=== PATIENT | female | born 1955 | race Caucasian/White ===

== ENCOUNTER 2017-01-12 14:48 | Inpatient (IN) | payer OTHER ==
[~2017-01-12] VITALS: Ht 167.6 cm; Wt 61.3 kg
[~2017-01-12 14:48] MED LIST: ACTICIN 5% 60GM60 GM TOP; BENADRYL ALLERG25 MG PO; DELTASONE20 MG PO; ELIMITE60 GM TOP; HYDROCORTISONE2.51 TOP; HYDROXYZINE HCL25 M2 PO; HYDROXYZINE HCL25 MG PO; HYDROXYZINE HCL50 M1 PO; LICE CREAM RIN120 ML TOP; LINDANE60 M1 TOP; LINDANE60 ML TOP; PERMETHRIN60 GM TOP; PREDNISONE 20MG20 MG PO; PREDNISONE10 MG PO; PREDNISONE20 M1 PO; PREDNISONE50 MG PO; VISTARIL25 M1 PO; VISTARIL25 MG PO; [UNRECOGNIZED DRUG - OTHER] TOP
--- NOTE | 2017-01-12 14:53 | NUR ---
"I CALLED MY DOCTOR AND I WANT TO KILL MYSELF SO HE TOLD ME TO CALL 911 AND NOW I AM HERE", THIS MST PROCEEDED TO CHECK PATIENT INTO THE COMPUTER FOR EVAL
--- NOTE | 2017-01-12 14:54 | NUR ---
PT STATES AT [facility], "IF I DONT GET MY FUCKING PILLS IM GONNA SNAP, IM GONNA FUCKING KILL SOMEONE" CHARGE NURSE AND SECURITY NOTIFIED.
--- NOTE | 2017-01-12 14:55 | NUR ---
PT MOVED DIRECTLY TO ROOM 13 AND TRIAGED THERE. PT REPORTS SHE HAS +SI AND +HI TOWARDS OTHERS. PT STATES SHE FEELS LIKE SHE IS "GOING TO SNAP". PT REPORTS ETOH USE TODAY AND RECENTLY, EVEN THOUGH SHE IS ON HARVONI FOR HEPATITIS C. PT STATES THAT SHE IS HOMELESS AND HAS BEEN STAYING AT [facility], HAS HAD WEIGHT LOSS OVER THE LAST 2 MONTHS, GOING FROM A SIZE 10 TO A SIZE 5. PT REPORTS A HX OF TREATMENT WITH DR ROSE AT [facility], BUT THAT SHE HAS NOT HAD AN APPOINTMENT RECENTLY AND HER PRESCRIPTIONS HAVE RUN OUT. PT DENIES HX OF SEIZURES. PT STATES THAT SHE SCRATCHES HER SKIN BECAUSE IT IS VERY ITCHY AND HAS BEEN PRESCRIBED HYDROXYZINE FOR THIS.
[2017-01-12] MEDS ORDERED: HYDROXYZINE HCL50 M1 PO (15:17)
[2017-01-12] MEDS ORDERED: HARVONI 90-4001 EACH PO (15:18)
[2017-01-12] MEDS ORDERED: PRAMIPEXOLE0.125 M1 PO (15:19)
--- NOTE | 2017-01-12 15:25 | ED GENERAL ADULT ---
See Addendum History of Present Illness General Chief Complaint: Psychiatric Related Complaint Stated Complaint: "I AM GONNA SNAP, I GOTTA GET MY PILLS", +SI/HI Source: patient Exam Limitations: no limitations Vital Signs & Intake/Output Vital Signs & Intake/Output Vital Signs Date Time Temp Pulse Resp B/P B/P Pulse O2 O2 Flow FiO2 Mean Ox Delivery Rate / 1010 97.0 66 15 128/73 06/08 0810 98.5 75 15 130/72 06/08 0810 98.5 75 15 130/72 95 Room Air Room Air 06/08 0610 97.2 67 18 123/61 06/08 0609 97.2 67 18 123/61 97 Room Air 06/08 0407 97.7 80 18 145/74 06/08 0407 97.7 80 18 145/74 93 Room Air 06/08 0203 97.7 75 16 145/82 06/08 0203 97.7 75 16 145/82 96 Room Air 06/08 0013 98.3 74 18 126/73 95 Room Air 06/08 0002 98.3 74 18 126/74 06/07 2159 98 128/72 06/07 2158 98.0 98 16 128/72 95 Room Air 06/07 1621 Room Air 06/07 1522 98.4 82 18 140/76 95 Room Air Allergies Coded Allergies: NO KNOWN ALLERGIES (01/14/11) Reconcile Medications Hydroxyzine HCl 50 MG TABLET 1 TAB PO Q8P PRN ITCHING (Reported) Ledipasvir/Sofosbuvir (Harvoni 90-400 MG Tablet) 90 MG-400 MG TABLET 1 TAB PO DAILY HEP C (Reported) Pramipexole Di-HCl (Pramipexole Dihydrochloride) 0.125 MG TABLET 2 TAB PO QPM RESTLESS LEGS (Reported) Triage Note: PT TO ROOM 13 DUE TO ANGER AND VERBAL AGITATION. PT REPORTS SHE IS READY TO "SNAP", REPORTING SI AND HI TOWARDS PEOPLE SHE STAYS WITH. PT STATES THAT SHE IS HOMELESS AND HAS A HX OF SEEING DR ROSE AT THE [facility] FOR DEPRESSION AND ANXIETY, BUT THAT SHE HASN'T BEEN ABLE TO GET AN APPOINTMENT AND HAS RUN OUT OF HER MEDICATIONS. Triage Nurses Notes Reviewed? yes HPI: 61-year-old female with a history of anxiety, depression, hep C presenting with agitation, suicidal ideation, homicidal ideation. States that her PMD refuses to take any future appointments with her as she has missed many multiple prior appointments. She has been unable to get refills on her hydroxyzine and pramipexole. Reports increasing agitation and anger since being off her medications. Has thoughts that she wants to punch or shoot herself and those around her. She reports history of EtOH abuse with last drink being a 6 pack of beer today, no history of withdrawal seizures or delirium. Denies drug use. Denies physical pain or trauma. (SARA HDEZ,NESTOR) Past History Travel History Traveled to [place] past 21 day No Medical History Any Pertinent Medical History? see below for history Neurological: NONE EENT: NONE Cardiovascular: NONE Respiratory: NONE Gastrointestinal: NONE Hepatic: HEPATITIS C Renal: NONE Musculoskeletal: NONE Psychiatric: anxiety, depression Blood Disorders: NONE Cancer(s): NONE MDS COORDINATOR/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: NONE Surgical History Surgical History: non-contributory Psychosocial History Who do you live with Friend Services at Home None What is your primary language Croatian Tobacco Use: Current Daily Use Daily Tobacco Use Amount/Type: => 5 Cigarettes daily ETOH Use: occasional use Illicit Drug Use: marijuana Family History Hx Contributory? No (NESTOR RUIZ PA-C) Review of Systems Review of Systems Constitutional: Reports: no symptoms. Respiratory: Reports: no symptoms. Cardiovascular: Reports: no symptoms. GI: Reports: no symptoms. Genitourinary: Reports: no symptoms. Musculoskeletal: Reports: no symptoms. Skin: Reports: no symptoms. Neurological/Psychological: Reports: no symptoms. (NESTOR RUIZ PA-C) Physical Exam Physical Exam General Appearance: well developed/nourished, no apparent distress, anxious, comfortable Head: atraumatic Ears, Nose, Throat: normal ENT inspection Respiratory: normal breath sounds, lungs clear Cardiovascular: regular rate/rhythm Gastrointestinal: soft, non-tender Extremities: normal inspection, normal range of motion Neurologic/Psych: no motor/sensory deficits, awake, alert, oriented x 3, normal gait, rewinder II-XII nml as tested Skin: intact, normal color, warm/dry Core Measures ACS in differential dx? No CVA/TIA Diagnosis: No Severe Sepsis Present: No Septic Shock Present: No (NESTOR RUIZ PA-C) Progress Differential Diagnoses I considered the following diagnoses in my evaluation of the patient: [ Depression versus suicidal ideation/homicidal ideation versus EtOH intoxication] Plan of Care: Orders Procedure Date/time Status Regular Diet 01/12 D Active CIWA 01/12 2103 Active Add-on Test (ER Only) 01/12 170 Active Add-on Test (ER Only) 01/12 1625 Active ETHANOL 01/12 161 Complete Continuous Observation Monitor 01/12 155 Active URINALYSIS 01/12 155 Complete CBC WITHOUT DIFFERENTIAL 01/12 155 Complete BASIC METABOLIC PANEL 01/12 155 Complete ED CRISIS PSYCH CONSULT 01/12 155 Active URINE DRUG SCREEN FOR ER ONLY 01/12 1530 Complete Current Medications Sig/Daija Start time Last Medication Dose Stop Time Status Admin Multivitamins 1 TAB DAILY 01/12 2051 UNVr 01/13 (Theragran Vitamins) 1022 Folic Acid 1 MG DAILY 01/12 2050 UNVr 01/13 (Folic Acid) 1022 Thiamine HCl 50 MG DAILY 01/12 2049 UNVr 01/13 (Vitamin B1) 1022 Laboratory Tests 01/12/17 1702: Serum Alcohol Cancelled 01/12/17 1625: Urine Color Cancelled, Urine Clarity Cancelled, Urine pH Cancelled, Ur Specific [place] Cancelled, Urine Protein Cancelled, Urine Ketones Cancelled, Urine Nitrite Cancelled, Urine Bilirubin Cancelled, Urine Urobilinogen Cancelled, Ur Leukocyte Esterase Cancelled, Ur Microscopic Cancelled, Urine Hemoglobin Cancelled, Urine Glucose Cancelled 01/12/17 1618: Anion Gap 15, Estimated GFR > 60, BUN/Creatinine Ratio 16.7, Glucose 105 H, Calcium 9.1, CBC w Diff NO MAN DIFF REQ, RBC 3.46 L, MCV 99.6 H, MCH 34.3 H, RDW 13.1, MPV 9.8, Gran % 48.5, Lymphocytes % 38.7, Monocytes % 10.0 H, Eosinophils % 1.8, Basophils % 1.0, Absolute Granulocytes 2.1, Absolute Lymphocytes 1.7, Absolute Monocytes 0.4, Absolute Eosinophils 0.1, Absolute Basophils 0, PUBS MCHC 34.5, Serum Alcohol 177.0 01/12/17 1534: Urine Opiates Screen < 100.00, Methadone Screen < 40, Barbiturate Screen < 60, Ur Phencyclidine Scrn < 6.00, Amphetamines Screen < 100, U Benzodiazepines Scrn < 85, Urine Cocaine Screen < 50, Urine Cannabis Screen < 5.00, Urine Color YEL, Urine Clarity CLEAR, Urine pH 6.0, Ur Specific [place] <= 1.005, Urine Protein NEG, Urine Ketones NEG, Urine Nitrite NEG, Urine Bilirubin NEG, Urine Urobilinogen 0.2, Ur Leukocyte Esterase NEG, Ur Microscopic EXAM NOT REQUIRED, Urine Hemoglobin NEG, Urine Glucose NEG Labs remarkable for hypokalemia to 3.3, ordered for 40 mEq of by mouth potassium. Labs also remarkable for thrombocytopenia at 89, which has been present on prior labs and relatively unchanged from her baseline. Patient pending crisis evaluation. 11:00 pm Patient evaluated by a retail management keyholder, no available beds currently in [facility] , therefore will be held overnight in the ED. Given patient's extensive history of alcohol abuse she was placed on CIWA protocol with nursing evaluation every 2 hours. There are no standing orders for benzos at this time as she has showed no signs of EtOH withdrawal and denies any history of the same. Orders for benzos will be placed if the patient should develop signs of EtOH withdrawal. (SARA HDEZ,NESTOR) Initial ED EKG: none (NESTOR RUIZ PA-C) Hand-Off Endorsed To: ROSHAN NEVILLE DO Endorsed Time: 0700 Pending: consult (ADRIÁN PATEL,LIGIA Payton) Departure Departure Disposition: STILL A PATIENT Condition: Stable Clinical Impression Primary Impression: Suicidal ideation Secondary Impressions: Alcohol abuse, Homicidal ideation Referrals: FIDEL ROSE APRN (PCP/Family) Departure Forms: Customer Survey General Discharge Information (NESTOR RUIZ PA-C) PA/BRIEF WRITER Co-Sign Statement Statement: ED Attending supervision documentation- [] I saw and evaluated the patient. I have also reviewed all the pertinent lab results and diagnostic results. I agree with the findings and the plan of care as documented in the PA's/BRIEF WRITER's documentation. [x] I have reviewed the ED Record and agree with the PA's/BRIEF WRITER's documentation. [] Additions or exceptions (if any) to the PAs/BRIEF WRITER's note and plan are summarized below: [] (ADRIÁN PATEL,LIGIA Payton) Departure Comments 01/13/17 Patient was signed out to me by Dr. Anaya at 7 AM. She is pending disposition by crisis. (ROSHAN NEVILLE DO) Critical Care Note Critical Care Note Critical Care Time: non-applicable (SARA HDEZ,NESTOR)
--- NOTE | 2017-01-12 15:40 | NUR ---
ZAHRAA RUIZ AT BEDSIDE FOR EVAL
--- NOTE | 2017-01-12 16:20 | NUR ---
LABS DRAWN AND SENT (SST,LAV) SITTER SENT URINE TRIO
[2017-01-12 16:31] LABS: ABSOLUTE BASOPHIL COUNT 0 /CUMM (0.0-0.2); ABSOLUTE EOSINOPHIL COUNT 0.1 /CUMM (0.0-0.7); ABSOLUTE GRANULOCYTE CT 2.1 /CUMM (1.4-6.5); ABSOLUTE LYMPH COUNT 1.7 /CUMM (1.2-3.4); ABSOLUTE MONOCYTE COUNT 0.4 /CUMM (0.10-0.60); EOSINOPHIL % 1.8 % (0-5); GRANULOCYTE % 48.5 % (42.2-75.2); HEMATOCRIT 34.5 % (37-47); MEAN CORPUSCULAR HGB 34.3 PG (27.0-31.0); MEAN CORPUSCULAR HGB CONC 34.5 G/DL (33.0-37.0); MEAN CORPUSCULAR VOLUME 99.6 FL (81.0-99.0); MEAN PLATELET VOLUME 9.8 FL (7.4-10.4); RBC DISTRIBUTION WIDTH 13.1 % (11.5-14.5); RED BLOOD CELL CT 3.46 /CUMM (4.20-5.40); WHITE BLOOD CELL COUNT 4.4 /CUMM (4.8-10.8)
[2017-01-12 16:46] LABS: PLATELET COUNT 89 /CUMM (130-400)
--- NOTE | 2017-01-12 17:41 | NUR ---
PT'S MEDICATIONS BROUGHT TO LAB - INCLUDING HARVONI WHICH PT TAKES DAILY IN THE MORNING. PER EDUARDO FROM PHARMACY, THEY WILL USE PT'S OWN MEDICATION.
--- NOTE | 2017-01-12 18:55 | NUR ---
PT ASLEEP AT THIS TIME. PT ATE DINNER TRAY AND HAS BEEN CALM AND COOPERATIVE. SITTER AT DOOR. CRISIS TO EVAL.
--- NOTE | 2017-01-12 19:31 | NUR ---
PT AWOKEN TO BE MEDICATED WITH POTASSIUM 40MEQ PO AND TO BE BREATHALYZED. PT CALM AND COOPERATIVE. SITTER AT DOOR. CRISIS MADE AWARE OF BREATHALYZER RESULTS.
--- NOTE | 2017-01-12 19:40 | NUR ---
CRISIS AT BEDSIDE FOR EVAL
--- NOTE | 2017-01-12 20:34 | NUR ---
PT ASLEEP ON BED IN ROOM 13. PT'S RESPIRATIONS EQUAL AND UNLABORED. SITTER AT DOOR.
--- NOTE | 2017-01-12 21:43 | ED PSYCH CRISIS CONSULTATION ---
See Addendum Crisis Consult Basic Assessment Date of Consult: 01/12/17 Responsible Person/Accompanied By: Self Insurance Authorization: Insurance #1: Insurance name: REINALDO STEPHENS Phone number: Policy number: [id number] Group number: Authorization number: ED Provider: Patient's ED Provider: NESTOR RUIZ PA-C Primary Care Physician: Patient's PCP: FIDEL ROSE APRN PCP's Current Psychiatrist: Pillo Car MD Chief Complaint: Psychiatric Related Complaint Patient's Quote: "Just shoot me put me out of my misery" Present Illness: Pt is a 61 year old female BIBA. Pt called 911 after she was told by a worker at [facility] to call 911. The worker told the pt to call 911 because of this statement by the pt "It wouldn't mean anything to you if I commit suicide". Pt reports she is feeling hopeless and depressed because she has "no income, no place to live", Pt reports she drinks Vodka & Beer daily and she has been drinking daily since June 11, 2016 when she was released from snf. Pt served 90 days in snf for violating her probation orders for failure to complete substance abuse treatment /classes at [facility]. Current symptoms, pt reports feeling very confused, I'm getting days mixed up ( "that is why I keep missing my appointments"). "I don't have an appetite and can 't sleep". Pt was alert, hyperverbal and oriented x2. Pt reports feeling very anxious and extremely angry. "I'm pissed off, I don't like myself". Pt's speech was rapid as she verbalize how hopeless her life is at this time. Pt endorsed suicidal thoughts with a plan to cut her wrist and overdose on pills. Pt has a history of cutting her wrist in the past in an attempt to commit suicide 3 years ago. "I was in a bad marriage then" No evidence of psychosis present at this time. Pt became very frustrated and stress today, because she was on the phone with [facility] and the provider shared with the pt that they couldn't continue to provide her with services because she has missed too many appointments. Pt ran out of her medications and she was attempting to get new prescriptions. Today she was told by [facility] in [place] to go to the [facility] in [place]. Pt became angry because she has no money and couldn't figure out how she would get to [place]. "I have no income" "I only get food stamps". "I don't want to live like this anymore". Pt said she has been staying with friends here and there. She was staying with Buddy Casey, but all they do is drink, "He is a worst drunk than me". Pt does not have any family support. Pt has two adult children (women) she doesn't get along with them . One child lives in [place]. Pt has three adult siblings ( sisters) and they all drink. Alaina the oldest is an alcoholic, Opal drinks too and Edita at age 37 of complications from alcohol according to the pt her sister "of an overdose of Vodka". Pt reports her mother when the pt was 5 weeks old, but she was told that her mother too was an alcoholic. Pt reports a history of mental illness. She was diagnosed with Major Deprssion, Anxiety and Bipolar Disorder. Pt said "I've been taking Paxil (10 mgs) for years". Also, she has been in multiple substance abuse treatment, the last one was at [facility] in June,. Pt did not verbalize a desire to stop drinking at this time. Patient's Address: [address] [place] [address] Other Phone Number: Who Do You Live With? Friend Family/Informants Interviewed: practice clinician left a message for Buddy Casey Allergies - Coded Allergies: NO KNOWN ALLERGIES (01/14/11) Current Medications - Scheduled Medications Ledipasvir/Sofosbuvir (Harvoni 90-400 MG Tablet) 90 MG-400 MG TABLET 1 TAB PO DAILY HEP C (Reported) Entered as Reported by ADRIÁN CAIN on 01/12/17 1514 Pramipexole Di-HCl (Pramipexole Dihydrochloride) 0.125 MG TABLET 2 TAB PO QPM RESTLESS LEGS #60 (Reported) Entered as Reported by ADRIÁN CAIN on 01/12/17 1519 Scheduled PRN Medications Hydroxyzine HCl 50 MG TABLET 1 TAB PO Q8P PRN ITCHING (Reported) Entered as Reported by ADRIÁN CAIN on 01/12/17 1517 Laboratory Results: Laboratory Tests 01/12/17 1702: Serum Alcohol Cancelled 01/12/17 1625: Urine Color Cancelled, Urine Clarity Cancelled, Urine pH Cancelled, Ur Specific [place] Cancelled, Urine Protein Cancelled, Urine Ketones Cancelled, Urine Nitrite Cancelled, Urine Bilirubin Cancelled, Urine Urobilinogen Cancelled, Ur Leukocyte Esterase Cancelled, Ur Microscopic Cancelled, Urine Hemoglobin Cancelled, Urine Glucose Cancelled 01/12/17 1618: Anion Gap 15, Estimated GFR > 60, BUN/Creatinine Ratio 16.7, Glucose 105 H, Calcium 9.1, CBC w Diff NO MAN DIFF REQ, RBC 3.46 L, MCV 99.6 H, MCH 34.3 H, RDW 13.1, MPV 9.8, Gran % 48.5, Lymphocytes % 38.7, Monocytes % 10.0 H, Eosinophils % 1.8, Basophils % 1.0, Absolute Granulocytes 2.1, Absolute Lymphocytes 1.7, Absolute Monocytes 0.4, Absolute Eosinophils 0.1, Absolute Basophils 0, PUBS MCHC 34.5, Serum Alcohol 177.0 01/12/17 1534: Urine Opiates Screen < 100.00, Methadone Screen < 40, Barbiturate Screen < 60, Ur Phencyclidine Scrn < 6.00, Amphetamines Screen < 100, U Benzodiazepines Scrn < 85, Urine Cocaine Screen < 50, Urine Cannabis Screen < 5.00, Urine Color YEL, Urine Clarity CLEAR, Urine pH 6.0, Ur Specific [place] <= 1.005, Urine Protein NEG, Urine Ketones NEG, Urine Nitrite NEG, Urine Bilirubin NEG, Urine Urobilinogen 0.2, Ur Leukocyte Esterase NEG, Ur Microscopic EXAM NOT REQUIRED, Urine Hemoglobin NEG, Urine Glucose NEG Past History Past Medical History Neurological: NONE EENT: NONE Cardiovascular: NONE Respiratory: NONE Gastrointestinal: NONE Hepatic: hepatitis C Renal: NONE Musculoskeletal: NONE Psychiatric: alcohol dependence, anxiety, depression Endocrine: NONE Blood Disorders: NONE Cancer(s): NONE BRINE 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/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: NONE Past Surgical History Surgical History: non-contributory Psychosocial History Strengths/Capabilities: Pt called 911 for help Pt has a desire to take her medications Physical Limitations (Interventions): None Psychiatric Treatment History Psych Treatment Psychiatric Treatment Yes Inpatient Treatment Yes Outpatient Treatment Yes Location of Treatment [facility] 2010, [facility] 2016 Reason for Treatment ETOH, Major Depression Dates of Treatment 2010 Response to Treatment Relapse ETOH Diagnosis by History: Major Depression Alcohol Use Disorder severe Substance Use/Abuse History Drug Use/Abuse Substances Used/Abused Yes Substance Used/Abused Alcohol First Use Age 40 Last Used 01/12/17 How much used/taken Vodka & Beer How often Daily For how long 6 months Route of use Oral Substance Abuse Treatment Substance Abuse Treatment Past Substance Abuse [place] Yes Inpatient Treatment Yes Outpatient Treatment Yes Location of Treatment [facility], [place] Reason for Treatment Alcohol Use Disorder Dates of Treatment 2015,2001 Response to Treatment Sobriety on and off. 90 days sober in 2015 due to incarceration April 2016. Current Mental Status Mental Status Orientation: Current situation Affect: Anxious, Angry, Depressed, Hopeless, Manic, Sad Speech: Hyper-verbal, Loud Neuro-vegetative: Appetite Decreased, Concentration Poor, Energy Decreased, Helpless, Loss of Interest, Sleep Disturbance Appearance Appearance- Dress/Hygiene: Disheveled, dry skin, poor hygiene. Pt showed she has scratches all very her legs and arms. Missing upper front teeth (pt lost her dentures). Behaviors Thought Process: Disorganized Thought Content: Hopeless Memory: Impaired Insight: Poor SI/HI Risk Assessment Past Suicidal Ideation/Attempts Yes Current Suicidal Ideation/Att Yes Past Homicidal Ideation/Att: No Current Homicidal Ideation/Attempts No Degree of Intent: Plan, Self Destructive/No Danger To: Self Gravely Disabled: Lack of Insight, Poor Impulse Control, Poor Judgment Risk Factors: chronic/serious med cond., high anxiety/distress, history of Violence, history of suicide atmpts, SA/MH hospitalized, substance abuse, poor impulse control, limited support Lethality Ratin PTSD Checklist PTSD Done? patient declined ED Management Sitter: Yes Restraints: No DSM5/PS Stressors/Medical Prob Diagnosis' (DSM 5, Stressors, Medical): F32.9 Depressive Disorder Unspecified, F10.20 Alcohol Use Disorder Severe, F41.1 Anxiety Medical Condition Hepatitis CZ59.7 Insufficent Social Welfare support, Z59.1 Inadequate Housing, Problems Related to Access to Medical and other Health Care. Current GAF: 20 Departure Disposition Psych Medical Clearance Date: 01/12/17 Medically Cleared at: 0400 Time Started: 0750 Time Ended: 0835 Psychiatrist Consulted: Pillo Car MD Date Disposition Established: 01/12/17 Time Disposition Established: 844 Plan for Disposition - Modality: Hold Over Reevaluated in AM Facility: [facility] Follow-up Appt Date: 01/12/17 Follow-Up Appt Time: 0800 Contact: Crisis Telephone: [phone] Rationale for Disposition: Pt presented to the ED with Suicidal thoughts and a plan to overdose on medications and cut her wrist. Pt was intoxicated ETOH upon arrival to the ED. Pt has a history of suicide attempt (cut wrist) and reports she has been drinking daily for the past 6 months. Pt is a risk and and a danger to herself. Plan monitor in ED for withdrawal symptoms, complete CIWA reevaluate in morning. Referrals FIDEL ROSE APRN (PCP/Family)
[2017-01-12 21:59] VITALS: BP 128/72
--- NOTE | 2017-01-12 22:00 | NUR ---
PT AWOKEN FOR VITALS AND CIWA. PT CALM AND COOPERATIVE. PT DENIES ANY WITHDRAWAL SYMPTOMS AT THIS TIME. SITTER AT DOOR.
--- NOTE | 2017-01-12 22:06 | NUR ---
PT MEDICATED WITH MULTIVITAMIN, VITAMIN B1 100MG AND FOLIC ACID.
[2017-01-13] VITALS (12 sets, daily range): BP systolic 112–145; BP diastolic 60–87
--- NOTE | 2017-01-13 | NUR ---
SLEEPING AT THIS TIME AWAKENED FOR VS. OFFERS NO COMPLAINTS. NO TREMORS PRESENT SITTER AT DOOR.
--- NOTE | 2017-01-13 02:02 | NUR ---
SLEEPING QUIETLY. AWAKENED FOR VS. CIWA = 0
--- NOTE | 2017-01-13 06:00 | NUR ---
AWAKENED FOR VS CO RICH. NO TREMORS PRESENT. SITTER AT DOOR.
--- NOTE | 2017-01-13 08:28 | NUR ---
PT RESTING ON STRETCHER, REPORTS IMPROVEMENT AFTER TYLENOL FOR HEAD. CIWA 0. SITTER REMAINS AT BEDSIDE FOR PT SAFETY.
--- NOTE | 2017-01-13 09:49 | NUR ---
PT REPORTED TO CRISIS THAT SCRATCH KNOTT ON HER ARMS WERE FROM ITCHING DUE TO BED BUGS. PT REPORTS LAST CONTACT WITH THE BUGS WAS TWO DAYS AGO "AND THEN I TOOK A HOT SHOWER AND CHANGED MY CLOTHES AFTER I LEFT AND CAME HERE." PT INSPECTED, NO BUGS NOTED ON PT OR IN ROOM/ON BED OR SHEETS. PT'S CLOTHING PREVIOUSLY IN A PLASTIC BELONGINGS BAG, BUT DOUBLE BAGGED AT THIS TIME PER PROTOCOL. PT PLACED ON CONTACT PRECAUTIONS.
--- NOTE | 2017-01-13 10:22 | NUR ---
PT MEDICATED PER EMAR. TOLERATED WELL.
--- NOTE | 2017-01-13 11:16 | NUR ---
Dispo: Case reviewed with Dr. Juan and meets inpatient criteria. Crisis will conduct bed search and pt is aware of plan and in agreement.
--- NOTE | 2017-01-13 12:25 | NUR ---
PT MEDICATED IWTH ATIVAN PER EMAR. TOLERATED WELL. REQUESTING TO SPEAK TO NAVY MATERIAL INSPECTOR ABOUT PROCESS OF BED SEARCH. VANDANA FROM CRISIS AWARE.
--- NOTE | 2017-01-13 14:58 | NUR ---
PT SLEEPING, NORMAL RESP RATE NOTED. SITTER REMAINS AT BEDSIDE FOR SAFETY.
--- NOTE | 2017-01-13 16:57 | NUR ---
PT RESTING ON BED, NO ACUTE DISTRESS NOTED. NORMAL RR NOTED. SITTERS REMAIN AT BEDSIDE FOR SAFETY. STILL AWAITING BED SEARCH.
--- NOTE | 2017-01-13 18:48 | NUR ---
PT RESTING ON STRETCHER, NO ACUTE DISTRESS NOTED. MEDICATED WITH ATIVAN PER EMAR.
--- NOTE | 2017-01-13 21:01 | NUR ---
PT RESTING ON STRETCHER. NO DISTRESS NOTED. DENIES ANY PAIN OR OTHER SYMPTOMS. CIWA 0.
--- NOTE | 2017-01-13 22:22 | NUR ---
PT CALM AND COPERATIVE AWAKE AND ALERT FOR VITALS AT THIS TIME. OFFERS NO COMPLAINTS
[2017-01-14] VITALS (10 sets, daily range): BP systolic 107–146; BP diastolic 72–87
--- NOTE | 2017-01-14 01:57 | NUR ---
PT RESTING ON STRETCHER. NO APPARENT DISTRESS NOTED. SITTERS IN PLACE. WILL CONTINUE TO MONITOR.
--- NOTE | 2017-01-14 03:42 | NUR ---
PT RESTING COMFORTABLY ON BED. NO APPARENT DISTRESS NOTED. WILL CONTINUE TO MONITOR. SITTER IN PLACE.
--- NOTE | 2017-01-14 05:00 | NUR ---
PT RESTING ON BED. NO APPARENT DISTRESS NOTED. EVEN RISE AND FALL OF CHEST NOTED. WILL CONTINUE TO MONITOR.
--- NOTE | 2017-01-14 06:53 | NUR ---
PT SITTING UP ON BED READING MAGAZINE. PT DENIES ANY COMPLAINTS. SITTER REMAINS IN PLACE.
--- NOTE | 2017-01-14 07:14 | NUR ---
RED'D REPORT AND ASSUMED CARE OF PT
--- NOTE | 2017-01-14 07:21 | NUR ---
PT RESTING IN DARKENED ROOM; EYES CLOSED
--- NOTE | 2017-01-14 08:32 | NUR ---
PT RESTLESS, DEMANDING "I WANT ANSWERS. NO ONE IS GOING TO TELL ME WHAT'S HAPPENING". PT REASSURED THAT STOCK PATCH SAWYER WOULD MEET WITH HER LATER THIS AM TO DISCUSS OPTIONS, WHICH IS ACCEPTABLE TO PT. REQUESTED AM ATIVAN.
--- NOTE | 2017-01-14 11:15 | NUR ---
ASSUMED CARE OF THIS PT FROM GEOVANNI JOHNSTON. PT SITTING ON BED IN ROOM 13 READING MAGAZINES. PT ASKING WHAT THE PKAN IS FOR HER AND WHEN SHE WILL BE ADMITTED. THIS RN ADVISED HER THAT ONCE THE DISCHARGE HAPPENS AND THE ROOM IS CLEANED, SHE WILL TRANSFER DOWNSTAIRS. PER CRISIS, THIS WILL BE AFTER 5PM. SITTER AT DOOR.
--- NOTE | 2017-01-14 11:51 | NUR ---
PT MEDICATED WITH ATIVAN 0.5MG PO PER EMAR. PT EATING LUNCH. SITTER AT DOOR.
--- NOTE | 2017-01-14 12:36 | IP CRISIS DIAG ASSESS PSYCH ---
Diagnostic Assessment Basic Assessment Insurance Authorization: Insurance #1: Insurance name: REINALDO STEPHENS Phone number: Policy number: [id number] Group number: Authorization number: Primary Care Physician: Patient's PCP: FIDEL ROSE APRN PCP's Patient's Quote: "Just shoot me put me out of my misery" Present Illness: Per Crisis Evaluation by Emery Soni, W[employer]: Pt is a 61 year old female BIBA. Pt called 911 after she was told by a worker at [facility] [place] to call 911. The worker told the pt to call 911 because of this statement by the pt "It wouldn't mean anything to you if I commit suicide". Pt reports she is feeling hopeless and depressed because she has "no income, no place to live", Pt reports she drinks Vodka & Beer daily and she has been drinking daily since June 11, 2016 when she was released from alf. Pt served 90 days in alf for violating her probation orders for failure to complete substance abuse treatment /classes at [facility]. Current symptoms, pt reports feeling very confused, I'm getting days mixed up ( "that is why I keep missing my appointments"). "I don't have an appetite and can 't sleep". Pt was alert, hyperverbal and oriented x2. Pt reports feeling very anxious and extremely angry. "I'm pissed off, I don't like myself". Pt's speech was rapid as she verbalize how hopeless her life is at this time. Pt endorsed suicidal thoughts with a plan to cut her wrist and overdose on pills. Pt has a history of cutting her wrist in the past in an attempt to commit suicide 3 years ago. "I was in a bad marriage then" No evidence of psychosis present at this time. Pt became very frustrated and stress today, because she was on the phone with [facility] [place] and the provider shared with the pt that they couldn't continue to provide her with services because she has missed too many appointments. Pt ran out of her medications and she was attempting to get new prescriptions. Today she was told by [facility] [place] in [place] to go to the [facility] [place] in [place]. Pt became angry because she has no money and couldn't figure out how she would get to [place]. "I have no income" "I only get food stamps". "I don't want to live like this anymore". Pt said she has been staying with friends here and there. She was staying with Buddy Casey, but all they do is drink, "He is a worst drunk than me". Pt does not have any family support. Pt has two adult children (women) she doesn't get along with them . One child lives in [place]. Pt has three adult siblings ( sisters) and they all drink. Alaina the oldest is an alcoholic, Opal drinks too and Edita at age 37 of complications from alcohol according to the pt her sister "of an overdose of Vodka". Pt reports her mother when the pt was 5 weeks old, but she was told that her mother too was an alcoholic. Pt reports a history of mental illness. She was diagnosed with Major Deprssion, Anxiety and Bipolar Disorder. Pt said "I've been taking Paxil (10 mgs) for years". Also, she has been in multiple substance abuse treatment, the last one was at [facility] in June,. Pt did not verbalize a desire to stop drinking at this time. Crisis consulted Dr. Harmon on 01/14/17 after re-evaluation. Pt presented as angry and irritable. Pt wants to go home. Pt denies SI and HI however yesterday continued to endorse a plan to kill herself by overdose of medication by any medications she can find. Pt is risk to self. Pt requires inpatient hospitalization to ensure her safety and to stabalize and resume psychiatric medications. Patient's Address: [address] [place] [address] Other Phone Number: Who Do You Live With? Friend Feel Safe Where You Live? Yes Feel Safe in Your Relationship Yes Marital Status: Do You Have Children? No Primary Language? 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 left a message for Buddy Daleyremberto Allergies - Coded Allergies: NO KNOWN ALLERGIES (01/14/11) Current Medications - Scheduled Medications Ledipasvir/Sofosbuvir (Harvoni 90-400 MG Tablet) 90 MG-400 MG TABLET 1 TAB PO DAILY HEP C (Reported) Entered as Reported by ADRIÁN CAIN on 01/12/17 1518 Pramipexole Di-HCl (Pramipexole Dihydrochloride) 0.125 MG TABLET 2 TAB PO QPM RESTLESS LEGS #60 (Reported) Entered as Reported by ADRIÁN CAIN on 01/12/17 1519 Scheduled PRN Medications Hydroxyzine HCl 50 MG TABLET 1 TAB PO Q8P PRN ITCHING (Reported) Entered as Reported by ADRIÁN CANI on 01/12/17 1517 Consequences of Psych Med Use: pt reports she has been off her medications for 2 months since she has missed several appointments at the [facility] [place] due to bad weather. Toxicology Screen Completed? Yes Results: positive (ETOH) Symptoms of Use: Pt drinks daily since June 2016 Past History Past Surgical History Surgical History none Abuse/Trauma History Trauma History/Current Trauma: Denies Legal History Current Legal Status: none Have you ever been arrested? Yes Number of Arrests: [address] Dates: none Psychosocial History Strengths/Capabilities: Pt called 911 for help Pt has a desire to take her medications Physical Limitations (Interventions): None Psychiatric Treatment History Psych Treatment Psychiatric Treatment Yes Inpatient Treatment Yes Outpatient Treatment Yes Location of Treatment [facility] 2010, [facility] 2016 Reason for Treatment ETOH, Major Depression Dates of Treatment 2010 () 2016- [facility] Response to Treatment Relapse ETOH Diagnosis by History: Major Depression Alcohol Use Disorder severe Risk Factors: chronic/serious med cond., high anxiety/distress, history of Violence, history of suicide atmpts, SA/MH hospitalized, substance abuse, poor impulse control, limited support Substance Use/Abuse History Drug Use/Abuse minimum 12mo Hx Substances Used/Abused Yes Substance Used/Abused Alcohol First Use Age 40 Last Used 01/12/17 How much used/taken Vodka & Beer How often Daily For how long 6 months Route of use Oral Substance Abuse Treatment Substance Abuse Treatment Past Substance Abuse TX Yes Inpatient Treatment Yes Outpatient Treatment Yes Location of Treatment [facility], [place] Reason for Treatment Alcohol Use Disorder Dates of Treatment Response to Treatment Sobriety on and off. 90 days sober in 2016 due to incarceration April 2016. Sexual History Sexually Active No Education History Highest Level of Education: not sure Current Mental Status Mental Status Orientation: Person, Place, Situation Affect: Angry, Hopeless, Manic, Sad Speech: Hyper-verbal, Loud Neuro-vegetative: Appetite Decreased, Concentration Poor, Energy Decreased, Helpless, Loss of Interest, Sleep Disturbance Appearance Appearance- Dress/Hygiene: Disheveled, dry skin, poor hygiene. Pt showed she has scratches all very her legs and arms. Missing upper front teeth (pt lost her dentures). Behaviors Thought Process: Disorganized Thought Content: Hopeless Memory: Impaired Insight: Poor SI/HI Risk Assessment - Minimum 6mo History- Past Suicidal Ideation/Attempts Yes Current Suicidal Ideation/Att Yes Past Homicidal Ideation/Att: No Current Homicidal Ideation/Attempts No Degree of Intent: Plan, Self Destructive/No Danger To: Self Gravely Disabled: Lack of Insight, Poor Impulse Control, Poor Judgment Risk Factors: chronic/serious med cond., high anxiety/distress, history of Violence, history of suicide atmpts, SA/MH hospitalized, substance abuse, poor impulse control, limited support Lethality Ratin Needs/Init TX Plan/Goals: Resume medications to treat symptoms of depression Increase social support system Link to terminal system operator provider for medication management and therapy Learn alcohol refusal skills and coping skills AUDIT-C Questionnaire: AUDIT-C Questionnaire: Response Value ETOH use in the past year 4 or more per week 4 # drinks typical/day 10 or more 4 6 or > drinks per occasion Daily/Almost Daily 4 Total 12 DSM5/PS Stressors/Medical Prob Diagnosis' (DSM 5, Stressors, Medical): F32.9 Depressive Disorder Unspecified F10.20 Alcohol Use Disorder Severe F41.1 Anxiety MedicalCondition Hepatitis CZ59.7 Insufficent Social Welfare support Z59.1 Inadequate Housing ProblemsRelated to Access to Medical and other Health Care. Current GAF: 20
--- NOTE | 2017-01-14 12:43 | NUR ---
Pt will be admitted to [facility] earlier in the afternoon, after 1pm, before 5pm PER [facility]
--- NOTE | 2017-01-14 13:30 | NUR ---
PT ASLEEP AT THIS TIME IN ROOM 13. PT CALM BUT AGGRIVATED AT HAVING TO WAIT TO BE ADMITTED. PT UNDER GOOD BEVAVIORAL CONTROL. SITTER AT DOOR.
--- NOTE | 2017-01-14 14:56 | NUR ---
WAS ADVISED THAT I COULD CALL REPORT ON ROOM 13, BUT WHEN I SPOKE WITH DALLAS, HE SAID THAT THE D/C THAT HAS OCCURRED WAS A MALE PT AND THAT HE WOULD CALL BACK AFTER THE SECOND D/C.
--- NOTE | 2017-01-14 18:58 | NUR ---
Patient was brought down to [facility] from ED at 1549, A&O X 3, compliant with medication and group therapies. Patient came with diagnosis of Unspecified Depressive Disorder,Alcohol Abuse/dependence with Suicidal Ideation. Patient is a bit hyperverbal and endorses some anger towards her neigbors and friend but denies thought of self-harm. Patient contracted for safety her in the unit her bahavior is a bit hyperactive but with coherent and organized thought.
--- NOTE | 2017-01-14 22:54 | Admission Certification ---
Admission Certification Certification Statement - As attending physician, I certify that at the time of - admission, based on clinical presentation, severity of - symptoms, need for further diagnostic testing and - therapeutic interventions, and risk of adverse outcomes - without in-hospital treatment, in my clinical assessment, - this patient requires an acute hospital stay for a minimum - of two nights or longer. I have also considered psychsocial - factors such as support system, advanced age, financial - issues, cognitive issues, and failed out-patient treatments, - past re-admission history, safety of patient, and lack of - compliance as applicable. Specific rationale supporting this admission is: Depression, alcohol use disorder, suicidal ideation.
--- NOTE | 2017-01-14 22:54 | History & Physical ---
General Information and HPI MD Statement: I have seen and personally examined HECTOR LUCAS and documented this H&P. The patient is a 61 year old F who presented with a patient stated chief complaint of [agitated, SI]. Source of Information: patient Exam Limitations: no limitations History of Present Illness: 61 yo F with h/o Hep C currently on Harvoni, anxiety, depression, bipolar disorder, is admitted to Inpatient Psychiatry for depression, suicidal ideation and alcohol use disorder. Please refer to Psych H and P for full details. Patient reports being compliant with Hep C medication. Although she states she has not been taking her depression meds. She drinks 6 pack of beer daily. She reports chest discomfort radiating to the left arm in the past 2 weeks, she is pain free at present. She also c/o being dyspneic when she gets anxious. Allergies/Medications Allergies: Coded Allergies: NO KNOWN ALLERGIES (01/14/11) Home Med list Hydroxyzine HCl 50 MG TABLET 1 TAB PO Q8P PRN ITCHING (Reported) Ledipasvir/Sofosbuvir (Harvoni 90-400 MG Tablet) 90 MG-400 MG TABLET 1 TAB PO DAILY HEP C (Reported) Pramipexole Di-HCl (Pramipexole Dihydrochloride) 0.125 MG TABLET 2 TAB PO QPM RESTLESS LEGS (Reported) Compliance With Home Meds: POOR Past History Travel History Traveled to [place] past 21 day No Medical History Neurological: NONE EENT: NONE Cardiovascular: NONE Respiratory: NONE Gastrointestinal: NONE Hepatic: hepatitis C Renal: NONE Musculoskeletal: NONE Psychiatric: alcohol dependence, anxiety, bipolar disease, depression Endocrine: NONE Blood Disorders: NONE Cancer(s): NONE 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 Psychosocial History Where do you live? Home Who Do You Live With? self Services at Home: None Primary Language: Nigerian Smoking Status: Current Everyday Smoker ETOH Use: occasional use Illicit Drug Use: marijuana Functional Ability ADLs Independent: dressing, eating, toileting, bathing. Ambulation: independent IADLs Independent: food prep, telephone, transportation, medication admin. Review of Systems Review of Systems Constitutional: Denies: chills, fever, weakness. EENTM: Reports: no symptoms. Cardiovascular: Reports: chest pain. Denies: orthopena, palpitations, syncope. Respiratory: Reports: short of breath. Denies: cough, sputum production, wheezing. GI: Denies: abdominal pain, diarrhea, nausea, vomiting. Genitourinary: Reports: no symptoms. Musculoskeletal: Reports: no symptoms. Skin: Reports: no symptoms. All Other Systems: Reviewed and Negative Exam & Diagnostic Data Last 24 Hrs of Vital Signs/I&O Vital Signs Date Time Temp Pulse Resp B/P B/P Pulse O2 O2 Flow FiO2 Mean Ox Delivery Rate 01/15 2311 78 18 121/75 01/15 2037 96.0 81 117/63 01/15 1535 98 121/72 01/15 1534 98 121/72 01/15 1411 91 108/71 01/15 1220 79 107/65 01/15 1155 79 107/65 01/15 0738 96.8 85 138/79 01/15 0737 96.8 85 138/79 01/15 0458 76 16 118/68 Physical Exam General Appearance Alert, Oriented X3, Cooperative, No Acute Distress Skin No Breakdown, No Significant Lesion HEENT EOMI, Mucous Membr. moist/pink Neck Supple Cardiovascular Regular Rate, Normal S1, Normal S2, No Murmurs Abdomen Normal Bowel Sounds, Soft, No Tenderness Neurological Exam Findings: Normal Gait, Normal Speech, Strength at 5/5 X4 Ext, Cranial Nerves 3-12 NL Cranial Nerves II through XII: Grossly intact Extremities No Edema, Normal Pulses, No Tenderness/Swelling Last 24 Hrs of Labs/Aguilar: WBC 4.4, H/H 11.9/34.5, Plt 89. K 3.3. UA neg. Utox neg. S. Alcohol 177. Diagnostic Data EKG Results -- CXR Results -- Assessment/Plan Assessment: 61 yo F admitted for depression, SI and alcohol use disorder. 1. Continue management per Psych team. 2. Smoking cessation counseling, nicotine patch. 3. Intermittent chest discomfort. Will obtain EKG. 4. Chronic Hep C. Will resume Harvoni. Patient reports she follows a GI and has a scheduled appointment next month. 5. 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 DVT ppx low risk, early ambulation. As Ranked By This Provider Problem List: 1. Chronic hepatitis C 2. Suicidal ideation 3. Alcohol abuse Miscellaneous Miscellaneous Documentation Attending Case Discussed With: Candelaria Tomlinson MD Primary Care Physician: FIDEL ROSE APRN Patient sees these Specialists -- Level of Patient Care: USMAN Torres Attending MD Review Statement Attending Statement Attending MD Statement: examined this patient, discuss w/resident/PA/FUR VAULT ATTENDANT
[2017-01-15] VITALS (10 sets, daily range): BP systolic 107–138; BP diastolic 63–79
--- NOTE | 2017-01-15 04:50 | NUR ---
PT SLEPT. PT WITH MINIMAL WITHDRAWAL SYMPTOMS.
--- NOTE | 2017-01-15 11:23 | CPS MD/APRN INITIAL ASSE PSYCH ---
Psychiatric Admission Cut Out Worker's Note Reviewed: Yes Patient Seen and Examined: Yes Identifying Information: samuel morse 61yo f Chief Complaint: depression, alcohol abuse Reaction to Hospitalization: Patient is agreeable History of Present Illness Onset of Illness: pt was send to the ed after reporting suicida ideation to a health worker. It wouldn't mean anything to you if I commit suicide". Pt reports she is feeling hopeless and depressed because she has "no income, no place to live" Pt reports she drinks Vodka & Beer daily and she has been drinking daily since June 11, 2016 when she was released from retirement. Pt served 90 days in retirement for violating her probation Pt has a history of cutting her wrist in the past in an attempt to commit suicide 3 years ago. "I was in a bad marriage then" Pt said she has been staying with friends here and there. Pt reports a history of mental illness. She was diagnosed with Major Deprssion, Anxiety and Bipolar Disorder. Pt said "I've been taking Paxil (10 mgs) for years". Also, she has been in multiple substance abuse treatment, the last one was at [facility] in June,. Circumstances Leading to Admission: suicidal staements Problem(s) Justifying Need for Admission: depression, alcohol abuse, suicidal. Past Psychiatric History Past Diagnosis(es)- if any: Pt has a history of cutting her wrist in the past in an attempt to commit suicide 3 years ago. "I was in a bad marriage then" She was diagnosed with Major Deprssion, Anxiety and Bipolar Disorder. Pt said "I've been taking Paxil (10 mgs) for years". Also, she has been in multiple substance abuse treatment, the last one was at [facility] in June,. Past Precipitating Factors- if any: alcohol buse, homelessness, finacial - Include inpatient and outpatient treatment Treatment History: as above History of Suicide Attempts or Gestures as above Substance Abuse History: Pt reports she drinks Vodka & Beer daily and she has been drinking daily since June 11, 2016 when she was released from retirement. 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 Substance Use: a lot of alcohol mother isters Suicides: denies Social History Living Situation: stayingPt reports she drinks Vodka & Beer daily and she has been drinking daily since June 11, 2016 when she was released from retirement. Pt served 90 days in retirement for violating her probation Pt has a history of cutting her wrist in the past in an attempt to commit suicide 3 years ago. "I was in a bad marriage then" Pt said she has been staying with friends here and there. staying w different friends,. No place of her own Significant Relationships (family/friends): friends, but she is mad at them . They are fdrinkers Education: na Vocation/Occupation: unemployed Legal: 90 days in retirement Healthly Behaviors Screening Tobacco Screening Tobacco Use from ED Docu: Current Daily Use Daily Tobacco Use Amount/Type: => 5 Cigarettes daily - If tobacco counseling indicated - the following topics are required. - #1 Recognizing dangerous situations. - #2 Coping Skills. - #3 Basic information about quitting. Status of Tobacco Cessation Counseling: #1, #2 AND #3 Completed Cessation Med Status Nicotine Gum Ordered Alcohol Screening - ETOH screen POS if BAL >=80 or Audit-C>= M4/F3 Audit-C Score from Diag Assess: 12 Alcohol Use Screening Results: Impaired D/T ETOH - If ETOH counseling indicated - the following topics are required. - #1 Express concern about the patient's - drinking at unhealthy levels, include informing - of national norms for moderate drinking: - men <= 14 drinks/week, max 4 drinks/occasion - women <= 7 drinks/week, max 3 drinks/occasion - #2 Providing feedback, including linking alcohol to - negative physical effects (liver injury, hypertension) - negative emotional effects (relationship problems and - depression) - negative occupational consequences (reduced work - performance) - #3 Advising the patient to abstain from alcohol or - to drink below national norms for moderate drinking - (as listed above). Status of ETOH Use Counseling: #1, #2 AND #3 Completed. Metabolic Screening - Screen if on a Neuroleptic Medication - Metabolic screening should include: - Blood Pressure, BMI, Glucose or Hgb A1c, & a - Lipid profile from within the past 365 days. Exam and Plan Mental Status Examination Ambulation Status: in bed, feeling tired. Appearance: mildly disheveled Attitude towards examiner: fairly cooperative Psychomotor activity: mild psychomotor retardation Behavior: coop Quality of speech: slow Affect: mild irritation Mood: down depressed Suicidal Ideation: denies Homicidal Ideation: denies Hallucinations: denies Paranoid/Delusional Material: no overt Difficulties with thought organization: slow but organized Insight: limited Judgment: limited Orientation: x3 Cognition: ok Memory Function: average Estimate of intellectual functioning: average Assets/Strengths Patient Identified Assets/Strengths: ... Impression/Plan Impression and Plan: pt with hx of alcohol dep, depression, suicidal attemtpos. With increased depression in the context of multiple social stressors and alcohol abuse - Include all active medical diagnosis that require tx DSM 5 Diagnosis(es): MDD rec severe wo psych Alcohol use disorder severe - Initial Tx Plan for Active Psych & Medical Conditions Treatment Plan: Adnit tt south 2 Re start her homne meds CIWA for alcohol Nicorette gum for tobacco - Factors that would help patient function - in a less restrictive setting. Factors: improved mood and affect No dangerousnes for self or others
--- NOTE | 2017-01-15 13:58 | NUR ---
IN AND OUT OF ROOM, ASKING QUESTIONS AND ADJUSTING TO UNIT. MOOD IS STABLE, SUBDUED AFFECT. DENIED THOUGHTSO SELF HARM WHEN ASKED. IS NOT SCORING ON CIWA
--- NOTE | 2017-01-15 22:36 | NUR ---
PT HAS BEEN SOCIAL WITH PEERS AND IS FRIENDLY WITH STAFF. SHE HAS NOT DISPLAYED ANY ABNORMAL/ SYMPTOMS OF DISTRESS BUT HAS APPEARED SLIGHTLY CONSTRICTED WITH A FLAT AFFECT. PT DENIES ANY THOUGHTS OF SI AND HAS BEEN IN BED FOR THE MAJORITY OF LATE AFTERNOON.
[2017-01-16] VITALS (8 sets, daily range): BP systolic 101–122; BP diastolic 51–70
--- NOTE | 2017-01-16 05:52 | NUR ---
PT C MINIMAL CIWAs. PT SLEPT. PT IS A PEC.
--- NOTE | 2017-01-16 10:18 | CP SOUTH PROGRESS NOTE PSYCH ---
Psych (Inpt) Progress Note Progress Note Include the following elements, when applicable: Involvement in the active treatment of the patient with behavioral observations of the patient and the patient's response to the treatment. Review of the ongoing treatment process in the context of the treatment plan. Indication of how multi-disciplinary staff members are carrying out the treatment plan. Plans for future interventions and recommendations for revision of the treatment plan. Liaison with other physicians/providers. Progress Note: discussed this patient's progress to date, current mental status, treatment process in the context of the treatment plan, and discharge planning with staff/ team in the daily morning inpatient team meeting. I also met with the patient myself in individual session. Patient reports feeling better today. She says she wants to go home. She has many stuff to take care of. She reports her roommate is in prison and he is on [address] and she is concerned about her housing. Patient denies any current suicidal ideation. She reported that she just snapped because she was mad. Vital Signs Date Time Temp Pulse Resp B/P B/P Pulse O2 O2 Flow FiO2 Mean Ox Delivery Rate 01/16 0749 97.7 87 16 119/70 01/16 0748 97.7 87 119/70 01/15 2311 78 18 121/75 01/15 2037 96.0 81 117/63 01/15 1535 98 121/72 01/15 1534 98 121/72 01/15 1411 91 108/71 01/15 1220 79 107/65 01/15 1155 79 107/65 Patient is alert, oriented, cooperative with the interview. No psychomotor agitation or retardation. Voice is normal in tone and volume. Mood described as feeling better. Affect is somewhat irritable thought processes fairly organized she is denying any current suicidal or homicidal ideation. No overt delusions. No hallucinations. Insight and judgment fair. A/P Patient seems to be improving however she seems to be having poor insight into her substance abuse problem. Continue with current medications Current Medications Sig/Daija Start time Last Medication Dose Route Stop Time Status Admin Escitalopram Oxalate 10 MG DAILY 01/15 1000 AC 01/16 PO 0755 Folic Acid 1 MG DAILY 01/12 2050 AC 01/16 PO 0755 Gabapentin 200 MG Q2 HRS NEEDED PRN 01/14 1830 AC PO Gabapentin 300 MG TID 01/14 1823 AC 01/16 PO 0755 Hydroxyzine HCl 50 MG Q8P PRN 01/14 1830 AC PO Lorazepam 0.5 MG Q6 01/15 1800 AC 01/16 PO 01/20 1159 0516 Lorazepam 1 MG Q1 NEEDED PRN 01/14 1830 AC PO Lorazepam 2 MG Q1 NEEDED PRN 01/14 1830 AC PO Lorazepam 0.5 MG Q6 01/13 1200 DC 01/15 PO 01/20 1159 1237 Multivitamins 1 TAB DAILY 01/12 205 AC 01/16 PO 0756 Nicotine 2 MG Q2P PRN 01/15 1030 AC PO Pramipexole 0.25 MG QPM 01/14 2200 AC 01/15 Dihydrochloride PO 2305 Thiamine HCl 50 MG DAILY 01/12 204 AC 01/16 PO 0756 Continue to provide support and encouragement.
--- NOTE | 2017-01-16 12:45 | NUR ---
PT VISIBLE IN THE MILIEU MOST OF THE DAY. HER GOAL WAS TO GET PRIORITIES STRAIGHTEN OUT. SHE HAS BEEN GOING TO GROUPS THROUGHTOUT THE DAY, AND ACTIVELY PARTICIPATING. HER INTERACTIONS WITH HER PEERS HAVE BEEN APPROPRIATE, AND DENIES THOUGHTS TO HURT HERSELF WHEN ASKED.
--- NOTE | 2017-01-16 22:05 | NUR ---
PT HAS BEEN QUIET AND CONSTRICTED. THERE HAVE BEEN NO REPORTS OR OBSERVABLE CHANGES OF DECLINE IN REGARDS TO AFFECT/MOOD. PT HAS DENIED ANY THOUGHTS OF SI WHEN ASKED BY STAFF.
[2017-01-17] VITALS (8 sets, daily range): BP systolic 101–121; BP diastolic 55–72
--- NOTE | 2017-01-17 04:41 | NUR ---
SLEPT WELL OVERNIGHT WITH NO COMPLAINTS OFFERED.
--- NOTE | 2017-01-17 13:07 | NUR ---
PT IS COMPLIANT AND COOPERATIVE. MOOD IS STABLE WITH A CONSTRICTED AFFECT. PT CAN BE IRRITABLE AT TIMES- HAD A COUPLE LOUD OUTBURSTS ABOUT BEING TIRED FROM MEDS AND NOT BEING ABLE TO GO TO GROUPS WHEN PT IS INVITED. PT HAS NOT EXPRESSED ANY SI. NO S/S OF DETOX NOTED OR REPORTED- NO SCORING ON CIWA. PT HAS BEEN PRESENT ON THE COMMUNITY AT TIMES AND INTERACTS WITH PEERS AND STAFF. PT SLEEPING IN SHORT INTERVALS THROUGH OUT THE DAY. PT IS ATTENDING SOME GROUPS. VITALS ARE STABLE, APPETITE IS GOOD.
--- NOTE | 2017-01-17 14:53 | CP SOUTH PROGRESS NOTE PSYCH ---
See Addendum Psych (Inpt) Progress Note Progress Note Include the following elements, when applicable: Involvement in the active treatment of the patient with behavioral observations of the patient and the patient's response to the treatment. Review of the ongoing treatment process in the context of the treatment plan. Indication of how multi-disciplinary staff members are carrying out the treatment plan. Plans for future interventions and recommendations for revision of the treatment plan. Liaison with other physicians/providers. Progress Note: I discussed this patient's progress to date, current mental status, treatment process in the context of the treatment plan, and discharge planning with staff/ team in the daily morning inpatient team meeting. I also met with the patient myself in individual session. Current Medications Sig/Daija Start time Last Medication Dose Route Stop Time Status Admin Escitalopram Oxalate 10 MG DAILY 01/15 1000 AC 01/17 PO 0812 Folic Acid 1 MG DAILY 01/12 2050 AC 01/17 PO 0812 Gabapentin 200 MG Q2 HRS NEEDED PRN 01/14 1830 AC PO Gabapentin 300 MG TID 01/14 1823 AC 01/17 PO 0812 Hydroxyzine HCl 50 MG Q8P PRN 01/14 1830 AC PO Lorazepam 0.5 MG Q6 01/15 1800 AC 01/17 PO 01/20 1159 1233 Lorazepam 1 MG Q1 NEEDED PRN 01/14 1830 AC PO Lorazepam 2 MG Q1 NEEDED PRN 01/14 1830 AC PO Multivitamins 1 TAB DAILY 01/12 2051 AC 01/17 PO 0812 Nicotine 2 MG Q2P PRN 01/15 1030 AC PO Pramipexole 0.25 MG QPM 01/14 2200 AC 01/16 Dihydrochloride PO 2226 Thiamine HCl 50 MG DAILY 01/12 2049 AC 01/17 PO 0812 Vital Signs Date Time Temp Pulse Resp B/P B/P Pulse O2 O2 Flow FiO2 Mean Ox Delivery Rate 01/17 1242 64 121/64 01/17 1235 64 121/64 01/17 0804 96.7 69 101/55 01/17 0739 96.7 69 101/55 01/16 2228 97.8 85 101/51 01/16 1957 97.8 85 101/51 01/16 1602 82 107/68 01/16 1541 82 107/68 A: Chart, progress notes, labs, vital signs and medication list were reviewed. Vital signs within normal limits. No new lab results today. Patient is a 61-year old female with a self reported hx of Bipolar disorder, depression, alcohol dependence who was BIBA for SI after stating over the phone "it wouldn't mean anything to you if I commit suicide" to a worker at [facility] after being denied prescription refills. Patient has been nonadherent to prescribed psychiatric medications for 2 months and drinking a 6- pack of beer daily since June of 2016. Met with patient today who confirmed the above events. Stated she had called [facility] in [place] for medication refills, but due to too many no shows was told by [facility] staff that she would have to go to the [facility] office to obtain prescriptions. Patient threatened SI with no intent due to the circumstances of having no transportation or money for transportation to get to the [facility] office. She stated that she only made SI statement out of anger and that she did not plan to act on it. She stated she had 1 prior suicide attempt by cutting her wrist 3 years ago while during a "bad" relationship. Denied prior inpatient psychiatric hospitalizations. On encounter today, she reports feeling "tired." States she believes this is due to current medications. Informed patient that she has been receiving scheduled Ativan d/t concern for alcohol withdrawal given daily drinking since 2015. She denies hx Szs, DTs or complicated etoh w/d. Rates depression a 10/10 (10 being the worst) related to being here. Rates anxiety a 8/10 (10 being the worst). Mood irritable. Affect variable. Reports sleeping "fine." Reports appetite is "ok." Denies active and passive suicidal ideation, plans and intent. Denies homicidal ideation. Denies auditory and visual hallucinations. Denies PI and delusions. Thought process linear. Cognition grossly intact. Pt with unspecified depressive d/o and alcohol use disorder, tolerating restart of antidepressant well w/o SEs. No SI. Continues to require inpatient hospitalization for safety, monitoring and alcohol detox. P: -change standing ativan to ativan taper as ordered. -cont. monitoring on unit for safety, mood, SI. -cont. monitoring on CIWA protocol as ordered. -cont. Lexapro 10mg daily for depression. -TSH, AST, ALT, rpt K ordered for tomorrow morning. -dispo planning per primary team. -Change standing Gabapentin from 300mg TID to 100mg TID d/t c/o sedation.
--- NOTE | 2017-01-17 15:16 | SOCIAL WORKER SOCIAL HX PSYCH ---
Social History Basic Assessment Insurance Authorization: Insurance #1: Insurance name: REINALDO [employer] (formerly [employer]) Phone number: Policy number: [id number] Group number: Authorization number: PENDING Curr Source of Income/Entitlements: food stamps, None Primary Care Physician: Patient's PCP: FIDEL ROSE APRN PCP's Present Problem: Met with 61yo female to complete social history. She denied SI/HI, no psychosis. She stated "That is what I said to get in here." She stated she has been drinking 8 Tall beers daily, and doesn't want to stop drinking. SHe stated she is "bored" and that is why she drinks. She stated she is not interested in AA meetings. She is not sure about IOP. She feels tired on her medication and just wants to sleep. She reports no supports, she lives with a male friend. Primary Language? Liberian Language(s) Spoken At Home: Liberian Living Situation Rents or Owns Home? rents Other Living Arrangement: friend's home Feel Safe Where You Are Living Yes Feel Safe in Relationships? Yes Allergies - Coded Allergies: NO KNOWN ALLERGIES (01/14/11) Current Medications - Scheduled Medications Escitalopram Oxalate (Lexapro) 10 MG TABLET 10 MG PO DAILY depression/anxiety #20 TAB Prescribed by REGINO AGUILA APRN on 01/19/17 Folic Acid 1 MG TABLET 1 MG PO DAILY vitamin support #20 TAB Prescribed by REGINO AGUILA APRN on 01/19/17 Gabapentin 100 MG CAPSULE 100 MG PO 0800,1400,2000 discomfort/anxiety #60 CAP Prescribed by REGINO AGUILA APRN on 01/19/17 Ledipasvir/Sofosbuvir (Harvoni 90-400 MG Tablet) 90 MG-400 MG TABLET 1 TAB PO DAILY HEP C (Reported) Entered as Reported by ADRIÁN CAIN on 01/12/17 1518 Multivitamin (One Daily Multivitamin) 1 EACH TABLET 1 TAB PO DAILY vitamin support #20 TAB Prescribed by REGINO AGUILA APRN on 01/19/17 Pramipexole Di-HCl (Mirapex) 0.25 MG TABLET 0.25 MG PO QPM restless legs #20 TAB Prescribed by REGINO AGUILA APRN on 06/14/17 Thiamine HCl (Vitamin B-1) 50 MG TABLET 50 MG PO DAILY vitamin support #20 TAB Prescribed by REGINO AGUILA APRN on 01/19/17 Scheduled PRN Medications Hydroxyzine HCl 50 MG TABLET 1 TAB PO Q8P PRN ITCHING (Reported) Entered as Reported by ADRIÁN CAIN on 01/12/17 6417 Past History Past Medical History Neurological: NONE EENT: NONE Cardiovascular: NONE Respiratory: NONE Gastrointestinal: NONE Hepatic: hepatitis C Renal: NONE Musculoskeletal: NONE Psychiatric: alcohol dependence, anxiety, bipolar disease, depression Endocrine: NONE Blood Disorders: NONE Cancer(s): NONE 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 Pt. stated she never knew her biological Father, and her Mother when she was 5weeks old. Her Mother was 38yo, she was an alcoholic Primary Childhood Caretakers: aunt, uncle Family Life During Childhood: it was great raised in [place], [place] DCF Involvement? Yes Explain: coleen stated DCF was involved she was a "baum of the state", was never adopted by her Maternal Aunt Mother's Age (Current/): 38 Relationship w/Mother: when Coleen was an Relationship w/Father: Never knew Father Any Sibling(s)? Yes Sibling's Gender(s)/Age(s): female Sibling 1:, female Sibling 2:, female Sibling 3: Relationship w/Sibling(s): 3 sisters all drank alcohol. 1 sister 37yo complications from alcohol. Relationship w/Friends: has a friend in [place], [place] Family Psych/Sub Abuse/Add Hx: drug of choice, Mother - alcoholic when patient was , sisters alcoholics Number of Pregnancies: 2 Number of Miscarriages: 0 Number of Abortions: 0 Abuse/Trauma History Trauma History/Current Trauma: Denies Legal History Current Legal Status: none Pending Court Dates: PT denies Have you ever been arrested Yes Number of Arrests: 1 Hx of Juvenile Legal Charges? No Hx of Adult Legal Charges? 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 No History of Blackouts? No ADL Limitations: PT stated her ADL's are good. [place]/Social/Peer Relations Has a friend in [place] Meaningful Activities: bike ride, paint, walking, library Childhood Mormon: Scientology Current Advent Affiliation: Scientology Is Spirituality Important to You? Yes Patient's Ethnicity: Jones, Spanish Cultural/Ethnic Issues: None reported Are There Developmental Issues? 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 No Explain: Doesn't remember Relapse History? Yes Explain: Chronic relapse Have You Ever Attended AA? No Do You Attend AA Currently? No Do You Have a Sponsor? No Other Community Resources Used: Refuses AA Symptoms of Use: Pt drinks daily since June 2016 Substance Abuse Treatment Substance Abuse Treatment Inpatient Treatment Yes [facility] Treatment Yes [facility] Reason for Treatment Alcohol Use Disorder Dates of Treatment 2015,2001 Response to Treatment Sobriety on and off. 90 days sober in 2016 due to incarceration April 2016. 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 of Jobs in Last 5 Years: 0 History Have You Been in The ? No Current Mental Status Problem List: 1. Suicidal ideation 2. Alcohol abuse Mental Status Orientation: Person, Place, Situation Affect: Angry, Hopeless, Manic, Sad Speech: Hyper-verbal, Loud Neuro-vegetative: Appetite Decreased, Concentration Poor, Energy Decreased, Helpless, Loss of Interest, Sleep Disturbance Appearance Appearance- Dress/Hygiene: Disheveled, dry skin, poor hygiene. Pt showed she has scratches all very her legs and arms. Missing upper front teeth (pt lost her dentures). 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
--- NOTE | 2017-01-17 15:57 | SOCIAL WORKER PROG NOTE PSYCH ---
Social Work Progress Note Progress Note Coleen Kusum Quan ZAMORA, and I met together today. Coleen presents as irritable in mood. States that she only said she was suicidal because she wanted her meds from [facility]. She denies any current SI, but states her depression is a 10 (1-10, 10 being worst). Anxiety an 8. She has been staying with a friend named Buddy at his apt., but she shared today that Buddy was arrested and is currently in senior living. She doesn't know what the outcome will be for him. She reports that he is a bad alcoholic. She reports they fight frequently, but she didn't seem to have any initiative to change her situation at this time. Talked about what she would like to do about tx and if she would be willing to accept rehab? She refused. She was honest about not wanting to give up drinking at this time. There are some health problems she discussed. She reports having Cirrosis of the liver and Hep C. She has been drinking a 6 pack of beer daily for years. She occasionally uses cannabis. Tried to talk about how the alcohol has had negative impacts on her life. She states it causes arguments with people and acknowledged that it can lead to poor judgement , but couldn't verbalize anything else. She refused an opportunity to go to rehab. She said she doesn't like feeling "caged". She talked about how she is helping Buddy take care of himself and his place. She states she often helps others. Tried to get her to look at helping herself this time. She said no and that she is a "glutten for punishment." Kusum let her know she is on an alcohol detox. She denied any current withdrawl symptoms. She was open to signing a release to [facility] in hopes that she can return there. Denies having any family around to help or support her. Doesn't have a relationship with her children. She is hoping to leave the hospital as soon as she is done with her alcohol detox.
--- NOTE | 2017-01-17 17:50 | NUR ---
PT IS CALM, COOPERATIVE WITH STAFF AND PEERS, AND COMPLIANT WITH UNIT RULES. OFTEN IN MILIEU, INTERACTING WELL WITH OTHERS. CAN BE SLIGHTLY WITHDRAWN AT TIMES. MOOD IS STABLE, AFFECT APPEARS EUTHYMIC TO FULL RANGE, COMMUNICATION APPEARS ORGANIZED IN ALL RESPECTS, AND APPETITE IS NORMAL. PT DENIES SI AT THIS TIME.
[2017-01-18] VITALS (7 sets, daily range): BP systolic 107–119; BP diastolic 63–67
--- NOTE | 2017-01-18 03:36 | NUR ---
SLEPT WELL OVERNIGHT.
--- NOTE | 2017-01-18 13:42 | NUR ---
PT IS COMPLIANT AND COOPERATIVE WITH UNIT RULES. PT IS OUT IN THE COMMUNITY ITNERACTING WELL WITH STAFF AND PEERS. PT MOOD IS STABLE WITH A FULL RANGE AFFECT. PT IS ATTENDING GROUPS. PT GOAL THIS MORNING WAS TO "TALK TO [facility] OFFICE SUPERVISOR ABOUT CONCERNS." PT DENIES SI THOUGHTS AND IS NOT SCORING ON CIWA ASSESSMENT.
--- NOTE | 2017-01-18 14:56 | CP SOUTH PROGRESS NOTE PSYCH ---
Psych (Inpt) Progress Note Progress Note Include the following elements, when applicable: Involvement in the active treatment of the patient with behavioral observations of the patient and the patient's response to the treatment. Review of the ongoing treatment process in the context of the treatment plan. Indication of how multi-disciplinary staff members are carrying out the treatment plan. Plans for future interventions and recommendations for revision of the treatment plan. Liaison with other physicians/providers. Progress Note: I discussed this patient's progress to date, current mental status, treatment process in the context of the treatment plan, and discharge planning with staff/ team in the daily morning inpatient team meeting. I also met with the patient myself in individual session. Current Medications Sig/Daija Start time Last Medication Dose Route Stop Time Status Admin Escitalopram Oxalate 10 MG DAILY 01/15 1000 AC 01/18 PO 1106 Folic Acid 1 MG DAILY 01/12 2050 AC 01/18 PO 0739 Gabapentin 100 MG 0800,1400,01/17 AC 01/18 PO 1442 Gabapentin 200 MG Q2 HRS NEEDED PRN 01/14 1830 AC PO Gabapentin 300 MG TID 01/14 1823 DC 01/17 PO 0812 Hydroxyzine HCl 50 MG Q8P PRN 01/14 1830 AC PO Lorazepam 0.5 MG 0800 01/19 0800 AC PO 01/26 0759 Lorazepam 0.5 MG 0800,01/18 0800 AC 01/18 PO 01/18 2001 0739 Lorazepam 0.5 MG 2100 01/17 2100 DC 01/17 PO 01/17 Lorazepam 0.5 MG Q6 01/15 1800 DC 01/17 PO 01/20 1159 1233 Lorazepam 1 MG Q1 NEEDED PRN 01/14 1830 AC PO Lorazepam 2 MG Q1 NEEDED PRN 01/14 1830 AC PO Multivitamins 1 TAB DAILY 01/12 205 AC 01/18 PO 0740 Nicotine 2 MG Q2P PRN 01/15 1030 AC PO Pramipexole 0.25 MG QPM 01/14 2200 AC 01/17 Dihydrochloride PO 2232 Thiamine HCl 50 MG DAILY 01/12 204 AC 01/18 PO 0739 Laboratory Tests 01/18 0602 Chemistry Potassium (3.5 - 5.1 mmol/L) 4.4 AST (14 - 36 U/L) 145 H ALT (9 - 52 U/L) 155 H TSH (0.270 - 4.200 uIU/mL) 1.760 Vital Signs Date Time Temp Pulse Resp B/P B/P Pulse O2 O2 Flow FiO2 Mean Ox Delivery Rate 01/18 1213 62 113/63 01/18 1212 62 113/63 01/18 0753 97.3 68 107/66 01/18 0733 97.3 68 107/66 01/17 1947 96.9 77 106/72 01/17 1942 96.9 77 106/72 01/17 1637 67 106/60 01/17 1636 67 10660 A: Chart, progress notes, labs, vital signs and medication list were reviewed. Vital signs within normal limits. Patient has not scored on CIWA in last 24 hours. LFTs were elevated and consistent with Hep C. TSH and K were within normal limits. Met with patient this afternoon. She described her mood as "better, I feel calm. I'm not tired today." Reported sleeping well overnight. Tolerating reduction Ativan taper well. Stated her appetite is "very good." She admitted to having drank prior to having the phone conversation with [facility] staff which resulted in her being sent to the ED secondary to SI. Stated that the reason she said she felt suicidal was d/t the [facility] staff being sarcastic to her. Patient remains ambivalent about pursuing IOP tx post-discharge. Continued to report that she doesn't feel ready to stop drinking. Rated her anxiety a 0/10 (10 being the worst). Rated depression a 0/10 (10 being the worst). Reported having some concerns surrounding her friend who she had been living with who presently is in long term. She denied suicidal and homicidal ideation, plans and intent. Denied homicidal ideation. Denied auditory and visual hallucinations. There was no evidence of paranoia, luana delusions or symptoms of jose. Reported tolerating medications well and denied untoward medication effects. She is agreeable to continue taking them. She was not agreeable to trial an alcohol deterrent medication. P: -cont. prescribed medications. -dispo planning per primary team - [facility] vs. Care vs. OPS. -likely discharge tomorrow, if remains psychiatrically stable.
--- NOTE | 2017-01-18 15:11 | SOCIAL WORKER PROG NOTE PSYCH ---
Social Work Progress Note Progress Note Called the [facility] in [place] and left a detailed message. Later spoke with Coleen, who presented as much more pleasant today. She stated her day was "fullfilling." She she feeling more "balanced" today. She was too over medicated yesterday. Told her that I was trying to speak with someone at [facility], but I haven't heard back from them yet. I asked if she had ever been to [facility]? She said she had and she will not go back there. She said she didn't get along with the clinicians. Asked about her feeling depressed and anxious today? She said she did alot of thinking last night. Specifically about her friend Buddy. She said that she is done feeling overly responsible for him. She tends to do that with people and she needs to learn to set limits. Asked if she is having thoughts to drink? She said no. She also stated today that she is done drinking. I asked what changed from yesterday? She said "something clicked." She said she can just stop and she's done it before. She is looking to discharge tomorrow, should her aftercare follow up be set up.
--- NOTE | 2017-01-18 16:26 | SOCIAL WORKER PROG NOTE PSYCH ---
See Addendum Social Work Progress Note Progress Note Called [place] [facility] and informed them that Evan is filing Probable Cause paperwork. Paperwork was submitted later in the afternoon. Hearing is scheduled for 12:30pm tomorrow.
--- NOTE | 2017-01-18 18:39 | NUR ---
PT IS CALM, COOPERATIVE WT STAFF AND PEERS, AND COMPLIANT WITH UNIT RULES. OFTEN IN [place], INTERACTING WITH OTHERS. MOOD IS STABLE, AFFECT APPEARS EUTHYMIC TO FULL RANGE, COMMUNICATION IS ORGANIZED AND APPEARS NORMAL IN ALL RESPECTS, AND APPETITE IS NORMAL. PT DENIES SI AT THIS TIME.
--- NOTE | 2017-01-19 05:45 | NUR ---
SL EPT WELL.
[2017-01-19 07:39] VITALS: BP 96/63
[2017-01-19 08:14] VITALS: BP 96/63
--- NOTE | 2017-01-19 08:58 | SOCIAL WORKER PROG NOTE PSYCH ---
Social Work Progress Note Progress Note Received a message from Courtney Samuel APRN at [facility] in [place]. I called back and she reported that she had not seen the patient, so she transferred me to her therapist Eleanor. Eleanor reported that she was on the verge of discharging Coleen, because she hadn't seen her since November. She reports that she had wanted to recommend detox for her and then maybe IOP. I told her I would be discussing IOP with her. Kusum Glass APRN and I met with her together. Coleen had a bright affect today. She was pleasant. Denied any SI, depression, or anxiety today. Slept well and is eating well. She talked about her enjoyment of arts and crafts, specifically cross [employer]. She enjoys going to [employer]. This has been a hobby of hers that she used to do, but hasn't been doing so much lately. She is interested in getting back to it. She talked about feeling "tired of drinking. " She is at a point where she seems motivated to make a change. Kusum and I both tried to get her to agree to IOP, but she refused. She has had some bad experiences in the past with IOP and reports getting "kicked out" of them. She would rather do outpatient and an occasional group. She said she went to the AA meeting here on the unit and plans to follow up with the particle board supervisor of the meeting on Tuesday. She is thinking of getting a sponsor. That is something she has never succeeded in doing in the past. She received a call from her ex- boyfriend Marcel last evening. She was talking about how she is torn between staying at [facility] vs. [employer] Marcel is not allowed to have guests more than a couple of nights due to his housing regulations. She reports that there is a better chance that she won't drink if she stays with him vs. at [employer] though. She is thinking about this. Talked about setting her up with TERENCE THOMAS, since she is refusing IOP at this time. I got her an intake on 02/02 at 9am. She will see Dr. Werner 02/07 at 1pm. I also called [facility] for her to see Blade Fisher APRN. They were only receptive to her seeing him today since she has missed so many appt.'s. She was agreeable. I set up the appt. for 2:20pm.
--- NOTE | 2017-01-19 09:21 | CP SOUTH PROGRESS NOTE PSYCH ---
Psych (Inpt) Progress Note Progress Note Include the following elements, when applicable: Involvement in the active treatment of the patient with behavioral observations of the patient and the patient's response to the treatment. Review of the ongoing treatment process in the context of the treatment plan. Indication of how multi-disciplinary staff members are carrying out the treatment plan. Plans for future interventions and recommendations for revision of the treatment plan. Liaison with other physicians/providers. Progress Note: I discussed this patient's progress to date, current mental status, treatment process in the context of the treatment plan, and discharge planning with staff/ team in the daily morning inpatient team meeting. I also met with the patient myself in individual session. Current Medications Sig/Daija Start time Last Medication Dose Route Stop Time Status Admin Escitalopram Oxalate 10 MG DAILY 01/15 1000 AC 01/19 PO 0800 Folic Acid 1 MG DAILY 01/12 2050 AC 01/19 PO 0800 Gabapentin 100 MG 0800,1400,01/17 AC 01/19 PO 0800 Gabapentin 200 MG Q2 HRS NEEDED PRN 01/14 1830 AC PO Hydroxyzine HCl 50 MG Q8P PRN 01/14 1830 AC PO Ibuprofen 400 MG ONCE ONE 01/18 2100 DC 01/18 PO 01/18 210 2217 Lorazepam 0.5 MG 0800 01/19 0800 CAN PO 01/26 075 Lorazepam 0.5 MG 0800 01/19 0800 DC 01/19 PO 01/19 0801 0802 Lorazepam 0.5 MG 0800,01/18 0800 DC 01/18 PO 01/18 Lorazepam 1 MG Q1 NEEDED PRN 01/14 1830 DC PO Lorazepam 2 MG Q1 NEEDED PRN 01/14 1830 DC PO Multivitamins 1 TAB DAILY 01/12 205 AC 01/19 PO 0800 Nicotine 2 MG Q2P PRN 01/15 1030 AC PO Pramipexole 0.25 MG QPM 01/14 2200 AC 01/18 Dihydrochloride PO 221 Thiamine HCl 50 MG DAILY 01/12 2049 AC 01/19 PO 0800 Vital Signs Date Time Temp Pulse Resp B/P B/P Pulse O2 O2 Flow FiO2 Mean Ox Delivery Rate 01/19 814 96.9 75 96/63 01/19 739 96.9 75 96/63 01/18 2019 97.2 66 119/67 01/18 2018 97.2 66 119/67 01/18 1615 74 110/65 01/18 1615 74 110/65 01/18 1213 62 113/63 01/18 1212 62 113/63 A: Chart, progress notes, labs, vital signs and medication list were reviewed. Vital signs within normal limits. Patient has not scored on CIWA in last 24 hours. CIWA discontinued. Reviewed the patient's progress to date with nursing staff. Patient was described as visible on unit, participating in the milieu, occasionally loud but in behavioral control. Mood stable, pleasant. Eating and sleeping without difficulty, attending to adls. No reports of SI, HI or AVH. Met with patient this morning together with Rose Mary Bhatia LCSW, on the date of discharge. Patient presented oriented x 3. Described her mood as "good." Affect full-range, appropriate, non-labile. Speech normal in rate, tone and volume. Eye contact appropriate. Offered no complaints. Reported sleeping well. Stated her appetite is "too good." Reported her energy level is "normal." She denied feeling hopeless, helpless, worthless and guilty. She denied passive and active suicidal ideation, plans and intent. Denied homicidal ideation, auditory and visual hallucinations. She stated and also believed she will not harm herself or others. Thought process linear, goal directed. No evidence of paranoia or delusions. She denied urges and cravings to use alcohol. Reported she is "tired of drinking." Reported speaking to her ex-boyfriend, Marcel, last night who wants to stop drinking. Patient reported that this gave her encouragement to stop drinking. Stated she attended unit AA meeting last evening and obtained the gold beater's contact information. Stated she plans to contact this woman and attend the meeting she facilitates next Tuesday. Also, stated that she is motivated to obtain an AA sponsor for support in sobriety and attend weekly meetings. Patient reported tolerating medications well and denied untoward medication effects. She reported feeling safe and ready for discharge. P: 1. Discharge to friend's home today. 2. F/u at [facility] in [place] with PCP Blade Fisher APRN today at 2:20 PM for Hep C management. 3. F/u at [facility] for intake on 02/02/17 at 9AM, and for medication management on 02/07/[address] Werner. 4. Patient was strongly advised to abstain from all substances, to attend daily AA meetings and to obtain a sponsor for support in sobriety. 5. In the event of an emergency, call [phone] or go to the nearest emergency department. Patient verbalized understanding of instructions. 6. Discharge medications were e-prescribed today to [facility] per patient request.
[2017-01-19] MEDS ORDERED: MIRAPEX0.25 M1 PO (11:13)
[2017-01-19] MEDS ORDERED: FOLIC ACID1 M1 PO (11:13)
[2017-01-19] MEDS ORDERED: ONE DAILY MULT1 EAC2 PO (11:13)
[2017-01-19] MEDS ORDERED: LEXAPRO10 M1 PO (11:13)
[2017-01-19] MEDS ORDERED: GABAPENTIN100 M2 PO (11:13)
[2017-01-19] MEDS ORDERED: VITAMIN B-150 M1 PO (11:13)
--- NOTE | 2017-01-19 11:17 | DISCHARGE SUMMARY REPORT-PSYCH ---
Visit Information Visit Dates/Diagnosis' Admission Date: 01/14/17 Discharge Date: 01/19/17 Psy Discharge Primary Diag: MDD, recurrent, severe without psychosis Psy Discharge Secondary Diag: Alcohol use disorder, severe; Hepatitis C; Chronic thrombocytopenia and pancytopenia (likely secondary to chronic bone marrow suppression from alcohol use). Hospital Course Significant Lab Findings: Lab ALT 155 U/L H 01/18/17 0602 AST 145 U/L H 01/18/17 0602 Hct 34.5 % L 01/12/17 1618 Hgb 11.9 G/DL L 01/12/17 1618 MCH 34.3 PG H 01/12/17 1618 MCV 99.6 FL H 01/12/17 1618 Monocytes % 10.0 % H 01/12/17 1618 Plt Count 89 /CUMM L 01/12/17 1618 RBC 3.46 /CUMM L 01/12/17 1618 WBC 4.4 /CUMM L 01/12/17 1618 Serum Alcohol 177.0 MG/DL 01/12/17 1618 Course Complications: None. Consultations: The patient was seen for admission history and physical by valet parker Dr. Candelaria Tomlinson. Please see MD note for additional information. Allergies: Coded Allergies: NO KNOWN ALLERGIES (01/14/11) Hospital Course/TX Response: The patient was monitored on the unit for safety, mood and alcohol withdrawal. She participated in multimodal treatments on the unit. She was started on an ativan taper for alcohol withdrawal and monitored on [facility] protocol. She tolerated ativan taper well and successfully completed it without complications. On admission to [facility], the patient had reported medication non-adherence to outpatient Lexapro 10mg daily for depression/anxiety. Lexapro 10mg daily was restarted for depression/anxiety. Gabapentin 300mg was also started TID for off- label anxiety/discomfort, however, in conjunction with receiving the ativan taper, the patient complained of feeling sedated during the day. Gabapentin was decreased from 300mg TID to 100mg TID. Upon completion of ativan taper, patient reported tolerating new dose of Gabapentin well and denied further reports of sedation. Daily multivitamin, folic acid and thiamine were added for vitamin support. Home medications for Hepatitis C and restless legs were continued as prescribed outpatient. The patient denied untoward medication effects. During the hospital course, the patient's mood and affect improved. She consistently denied suicidal and homicidal ideation, auditory and visual hallucinations, paranoia and delusions. She consistently stated that her report of suicidal ideation (which led to this hospitalization) was only said in spite, following a verbal argument over the phone with a post acute care nurse practitioner at [facility], who she claimed was disrespectful to her while attempting to obtain medication refills. The patient did not allow friends or family to be involved in her inpatient care. She resisted the recommendation to transition into a dual diagnosis intensive outpatient programming for increased treatment support. She was in favor of following up at [facility] for medication management and willing to participate in a weekly therapy group, in addition to obtaining an AA sponsor and attending weekly AA meetings. On the date of discharge, the patient presented oriented x 3. Described her mood as "good." Affect full-range, appropriate, non-labile. Speech normal in rate, tone and volume. Eye contact appropriate. Offered no complaints. Reported sleeping well. Stated her appetite is "too good." Reported her energy level is "normal." She denied feeling hopeless, helpless, worthless and guilty. She denied passive and active suicidal ideation, plans and intent. Denied homicidal ideation, auditory and visual hallucinations. She stated and also believed she will not harm herself or others. Thought process linear, goal directed. No evidence of paranoia or delusions. She denied urges and cravings to use alcohol. Reported she is "tired of drinking." Reported speaking to her ex-boyfriend, Marcel , last night, who also wants to stop drinking. Patient reported that this gave her encouragement to stop drinking. Stated she attended unit AA meeting last evening and obtained the graffiti cleaner's contact information. Stated she plans to contact this woman and attend the meeting she facilitates next Tuesday. Also, stated that she is motivated to obtain an AA sponsor for support in sobriety and attend weekly meetings. Patient reported tolerating medications well and denied untoward medication effects. She reported feeling safe and ready for discharge. Discharge HBIPS - Tobacco Use Treatment Offered Post DC Medications Offered: Refused Tob Medication Tx Post DC Tobacco Treatment Plan: Refused Tobacco Tx Pgm - EtOH/Drug Use D/O Treatment Offered Post DC Medications Offered: Ref Med EtOH/Drug Use D/O Post DC EtOH/SubAbuse TX Plan: Refused Post DC Tx Pgm Metabolic Screening - Screen if on a Neuroleptic Medication - Metabolic screening should include: - Blood Pressure, BMI, Glucose or Hgb A1c, & a - Lipid profile from within the past 365 days. Metabolic Screening ([X]) Not Applicable, patient not on a neuroleptic. OR () Patient on a neuroleptic(s) . Enter below results for Glucose or Hemoglobin A1C, and lipid panel if obtained during the last 365 days. BMI: 21.800 Blood Pressure: 104/56 Laboratory Results (If applicable): n/a Discharge Instructions General Discharge Information Discharge Medications: Discharge Medications- (Dose, route, freq, indication): START taking these NEW Home Medications: Gabapentin Dose: ORAL, 0800,1400,2000 for Qty: 60 Sent to (Gabapentin) 100 MG 100 Milligram discomfort/anxiety Refills: 0 Pharm 1 CAPSULE Take 1 cap po TID. Escitalopram Oxalate Dose: ORAL, DAILY for Qty: 20 Sent to (Lexapro) 10 MG 10 Milligram depression/anxiety Refills: 0 Pharm 1 TABLET Take 1 tab po daily. Pramipexole Di-HCl Dose: ORAL, Every night for Qty: 20 Sent to (Mirapex) 0.25 MG 0.25 restless legs Refills: 0 Pharm 1 TABLET Milligram Take 1 tab po QPM. Folic Acid (Folic Dose: ORAL, DAILY for vitamin Qty: 20 Sent to Acid) 1 MG TABLET 1 Milligram support Refills: 0 Pharm 1 Take 1 tab po daily. Thiamine HCl Dose: ORAL, DAILY for vitamin Qty: 20 Sent to (Vitamin B-1) 50 MG 50 Milligram support Refills: 0 Pharm 1 TABLET Take 1 tab po daily. Multivitamin (One Dose: ORAL, DAILY for vitamin Qty: 20 Sent to Daily Multivitamin) 1 Tablet support Refills: 0 Pharm 1 1 EACH TABLET Take 1 tab po daily. CONTINUE taking these Home Medications: Hydroxyzine HCl Dose: ORAL, EVERY 8 HOURS (Hydroxyzine HCl) 50 MG 1 Tablet NEEDED as needed for TABLET ITCHING Ledipasvir/Sofosbuvir Dose: ORAL, DAILY for HEP C (Harvoni 90-400 MG 1 Tablet Tablet) 90 MG-400 MG TABLET 1: [facility] [place] [id number] [facility] [address] [place], [place] [phone] Multiple Neuroleptics: ([X]) Not Applicable OR Document below three failed attempts at monotherapy, or a plan to taper to monotherapy, or augmentation of Clozapine. () Patient's Diet: Regular. Patient's Activity: No restrictions. DC Disposition: To return to friend's home. Recommendations: The patient was advised to please take her medications as prescribed. She was advised to abstain from all substances, to attend weekly AA meetings and to obtain a sponsor for support in sobriety. She was advised to follow up with scheduled referral appointments at [facility] and [facility] for primary care and management of hepatitis C. She was advised that in the event of an emergency to call [phone] to nearest emergency department. The patient verbalized understanding of all instructions. Referred To: Post Discharge Referrals OUTPATIENT PSYCHIATRY Service Date: 02/02/17 248/[address] [id number] (T)[phone] Notes: [facility] Intake [address] appt. 02/02/17 9am (T)[phone] Outpatient Psychiatry Service Date: 02/07/17 248[address] [address] (T)[phone] Notes: [facility] appt. with Dr. Werner 02/07/17 1pm [address] [place] [address] [facility] Service Date: 01/19/17 [address] [facility] [place] [address] (T)[phone] Notes: [facility] [address] [facility] [place] appt. with Blade Fisher APRN 01/19/17 2:20pm Copies To: [facility]; [facility]
--- NOTE | 2017-01-19 11:39 | NUR ---
PT IS SCHEDULED FOR DISCHARGE TO [facility] TODAY. SHE REPORTS AND DMONSTRATES IMPROVEMENT IN HER MOOD AND ABILITY TO FUNCTION. SHE DENIES ANY THOUGHTS OF SUICIDE OR SELF HARM AT THIS TIME. SHE VERBALIZES A GOOD UNDERSTANDING OF HER MED REGIME AND AGREES TO FOLLOW UP WITH [facility] AND WILL SEE THEM TODAY. PT IS GIVEN EDUCATION R/T MANAGING HER MOOD DISORDER AND SUBSTANCE ABUSE AND ON PREVENTING SUICIDE
[2017-01-19 12:21] VITALS: BP 104/56
== END 2017-01-19 12:40 | DRG 751 ==
LOC: ERH 14:48 → ERHI 01-14 11:10 → CP SOUTH 01-14 11:10 → ENTRNSPT 01-14 15:31 → CP SOUTH 01-14 15:46 → CMPTRNSPT 01-14 15:51 → ENRESERV 01-14 18:00 → CP SOUTH 01-14 19:00
PROVIDERS: Physician Assistant; ADMIT Psychiatry & Neurology Psychiatry
DX: F33.2 Major depressive disorder, recurrent severe without psychotic features (principal); F10.20 Alcohol dependence, uncomplicated; B18.2 Chronic viral hepatitis C; D69.59 Other secondary thrombocytopenia; D61.818 Other pancytopenia
CPT/HCPCS: 36415; 80307; 81003; 93005; 93010; G0463; G0480; J3490

== ENCOUNTER 2017-11-01 00:42 | Emergency (ER) | payer OTHER ==
[~2017-11-01] VITALS: Ht 167.6 cm; Wt 63.5 kg
[~2017-11-01 00:42] MED LIST changes: +FOLIC ACID1 M1 PO; +GABAPENTIN100 M2 PO; +HARVONI 90-4001 EACH PO; +LEXAPRO10 M1 PO; +MIRAPEX0.25 M1 PO; +ONE DAILY MULT1 EAC2 PO; +PRAMIPEXOLE0.125 M1 PO; +VITAMIN B-150 M1 PO
--- NOTE | 2017-11-01 01:20 | ED UPPER/LOWER EXTREMITY COMPL ---
History of Present Illness General Chief Complaint: Lower Extremity Problems Stated Complaint: PT C/O LT KNEE PAIN S/P FALL 1 WK AGO CAN'T SLEEP Source: patient, old records Exam Limitations: no limitations Vital Signs & Intake/Output Vital Signs & Intake/Output Vital Signs Date Time Temp Pulse Resp B/P B/P Pulse O2 O2 Flow FiO2 Mean Ox Delivery Rate 11/01 0111 97.0 90 20 93/61 98 Room Air Allergies Coded Allergies: NO KNOWN ALLERGIES (01/14/11) Reconcile Medications Escitalopram Oxalate (Lexapro) 10 MG TABLET 10 MG PO DAILY depression/anxiety Folic Acid 1 MG TABLET 1 MG PO DAILY vitamin support Take 1 tab po daily. Gabapentin 100 MG CAPSULE 100 MG PO 0800,1400,2000 discomfort/anxiety Hydroxyzine Hydrochloride (Atarax) 50 MG TABLET 1 TAB PO Q8P PRN ITCHING ( Reported) Ledipasvir/Sofosbuvir (Harvoni 90-400 MG Tablet) 90 MG-400 MG TABLET 1 TAB PO DAILY HEP C (Reported) Multivitamin (One Daily Multivitamin) 1 EACH TABLET 1 TAB PO DAILY vitamin support Take 1 tab po daily. Pramipexole Di-HCl (Mirapex) 0.25 MG TABLET 0.25 MG PO QPM restless legs Take 1 tab po QPM. Thiamine HCl (Vitamin B-1) 50 MG TABLET 50 MG PO DAILY vitamin support Take 1 tab po daily. Triage Note: PT HERE WITH REPORTS OF LEFT KNEE PAIN S/P FALLING ON IT. PT REPORTS THAT SHE CANT SLEEP D/T THROBBING PAIN. Triage Nurses Notes Reviewed? yes HPI: Patient states that she has fallen a few times over the past few weeks and landed on her left knee. 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 Patient states that since the falls are knee has been very swollen and black and blue. The pain is throbbing in nature. The pain increased with movement. There is no radiation. The pain is severe and does not allow her to sleep. Patient denies any other injury. Past History Travel History Traveled to [place] past 21 day No Medical History Any Pertinent Medical History? see below for history Neurological: NONE EENT: NONE Cardiovascular: NONE Respiratory: NONE Gastrointestinal: NONE Hepatic: hepatitis C Renal: NONE Musculoskeletal: NONE Psychiatric: alcohol dependence, anxiety, bipolar disease, depression Endocrine: NONE Blood Disorders: NONE Cancer(s): NONE DELIVERY TECH/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: NONE History of MRSA: No History of VRE: No History of CDIFF: No Surgical History Surgical History: hysterectomy Psychosocial History Who do you live with Friend Services at Home None What is your primary language Ethiopian Tobacco Use: Current Daily Use Daily Tobacco Use Amount/Type: => 5 Cigarettes daily ETOH Use: alcoholic Illicit Drug Use: denies illicit drug use Family History Family History, If Any: MOTHER (Lung cancer). Hx Contributory? No Review of Systems Review of Systems Constitutional: Reports: no symptoms. Respiratory: Reports: no symptoms. Cardiovascular: Reports: no symptoms. Gastrointestinal/Abdominal: Reports: no symptoms. Musculoskeletal: Reports: see HPI, joint pain, joint swelling. Neurological/Psychological: Reports: no symptoms. Immunological: Reports: no symptoms. Physical Exam Physical Exam General Appearance: well developed/nourished, alert, awake, mild distress Head: atraumatic, normal appearance Eyes: Bilateral: PERRL, EOMI. Neck: normal inspection, supple, no midline tenderness Cardiovascular/Respiratory: normal breath sounds, normal peripheral pulses, regular rate/rhythm Knee Left: swelling, tenderness Knee Ligaments Left: STABLE Neurologic/Tendon: normal sensation, normal motor functions, normal tendon functions Progress Differential Diagnosis: contusion, dislocation, fracture, sprain Plan of Care: Orders Procedure Date/time Status Durable Medical Equipment 11/02 119 Active Diagnostic Imaging: Viewed by Me: Radiology Read. Discussed w/RAD: Radiology Read. Radiology Impression: PATIENT: HECTOR LUCAS PRESENT AGE: 62 PATIENT ACCOUNT NO: [id number] : 55 LOCATION: [facility] ORDERING PHYSICIAN: Raj Reeves MD SERVICE DATE: 11/01/17 EXAM TYPE: RAD - XRY-KNEE COMPLETE LEFT EXAMINATION: LEFT KNEE 3 VIEWS CLINICAL INFORMATION: Left knee pain after fall. COMPARISON: None. TECHNIQUE: AP, lateral, oblique views of the left knee were obtained. FINDINGS: There are no fractures or dislocations. There is no knee joint effusion. There is no significant soft tissue swelling. IMPRESSION: Unremarkable left knee radiographs. DICTATED BY: Sheng Nieto MD DATE/TIME DICTATED:11/01/17201 COAL TRAM DRIVER:[id number] DATE/TIME TRANSCRIBED:11/01/17201 CONFIDENTIAL, DO NOT COPY WITHOUT APPROPRIATE AUTHORIZATION. <Electronically signed in Other Vendor System> SIGNED BY: Sheng Nieto MD 11/01/17 0205 Departure Departure Disposition: HOME OR SELF CARE Condition: Stable Clinical Impression Primary Impression: Contusion of left knee Referrals: Adeel PATEL,Blade Breen APRN (PCP/Family) Additional Instructions: KEEP IMMOBILIZER ON TAKE OXYCODONE NEEDED FOR PAIN FOLLOW UP WITH DR. TEJADA RETURN FOR ANY CONCERNS Departure Forms: Customer Survey General Discharge Information Prescriptions: Current Visit Scripts Oxycodone HCl 1 CAP PO 4XDP PRN PAIN #16 CAP Procedures Splinting Location: LEFT KNEE Manual Alignment Performed: No Pre-Made Type: knee imobilizer Splint: KNEE Splint Applied By: splint applied by me Pre-Proc Neuro Vasc Exam: normal Post-Proc Neuro Vasc Exam: normal
--- NOTE | 2017-11-01 02:05 | RADIOLOGY REPORT ---
EXAMINATION: LEFT KNEE 3 VIEWS CLINICAL INFORMATION: Left knee pain after fall. COMPARISON: None. TECHNIQUE: AP, lateral, oblique views of the left knee were obtained. FINDINGS: There are no fractures or dislocations. There is no knee joint effusion. There is no significant soft tissue swelling. IMPRESSION: Unremarkable left knee radiographs.
[2017-11-01] MEDS ORDERED: OXYCODONE HCL5 M2 PO (02:37)
[2017-11-01 02:51] VITALS: BP 109/69
== END 2017-11-01 02:52 ==
LOC: ERH 00:42
DX: S80.02XA Contusion of left knee, initial encounter (principal); X58.XXXA Exposure to other specified factors, initial encounter; Y93.67 Activity, basketball; Y92.9 Unspecified place or not applicable
CPT/HCPCS: 73562-LT

== ENCOUNTER 2018-05-04 11:19 | Emergency (ER) | payer OTHER ==
[~2018-05-04] VITALS: Ht 167.6 cm; Wt 59.0 kg
[~2018-05-04 11:19] MED LIST changes: +OXYCODONE HCL5 M2 PO
[2018-05-04 11:24] VITALS: BP 106/66
--- NOTE | 2018-05-04 12:28 | RADIOLOGY REPORT ---
EXAMINATION: XR WRIST, RIGHT XR HAND, RIGHT CLINICAL INFORMATION: Status post fall on hand. Evaluate for fracture. COMPARISON: None TECHNIQUE: PA, oblique, lateral, and scaphoid views of the right wrist are obtained. PA, oblique, and lateral views of the right hand are obtained. FINDINGS: Right wrist: There is no fracture or malalignment. There are mild degenerative changes of the triscaphe and first CMC joints. Right hand: There is no fracture or malalignment. There are minor degenerative changes of multiple IP joints. IMPRESSION: Mild degenerative changes. No evidence of acute injury to the right wrist and right hand.
--- NOTE | 2018-05-04 12:33 | ED HAND/WRIST INJURY COMPLAINT ---
History of Present Illness General Chief Complaint: Hand or Wrist Injury Stated Complaint: FALL, WRIST PAIN Source: patient Exam Limitations: no limitations Vital Signs & Intake/Output Vital Signs & Intake/Output Vital Signs Date Time Temp Pulse Resp B/P B/P Pulse O2 O2 Flow FiO2 Mean Ox Delivery Rate 05/04 1124 96.1 85 18 106/66 97 Room Air Allergies Coded Allergies: NO KNOWN ALLERGIES (01/14/11) Reconcile Medications Escitalopram Oxalate (Lexapro) 10 MG TABLET 10 MG PO DAILY depression/anxiety Folic Acid 1 MG TABLET 1 MG PO DAILY vitamin support Take 1 tab po daily. Gabapentin 100 MG CAPSULE 100 MG PO 0800,1400,2000 discomfort/anxiety Hydroxyzine Hydrochloride (Atarax) 50 MG TABLET 1 TAB PO Q8P PRN ITCHING ( Reported) Ledipasvir/Sofosbuvir (Harvoni 90-400 MG Tablet) 90 MG-400 MG TABLET 1 TAB PO DAILY HEP C (Reported) Multivitamin (One Daily Multivitamin) 1 EACH TABLET 1 TAB PO DAILY vitamin support Take 1 tab po daily. Oxycodone HCl 5 MG CAPSULE 1 CAP PO 4XDP PRN PAIN Pramipexole Di-HCl (Mirapex) 0.25 MG TABLET 0.25 MG PO QPM restless legs Take 1 tab po QPM. Thiamine HCl (Vitamin B-1) 50 MG TABLET 50 MG PO DAILY vitamin support Take 1 tab po daily. Triage Note: 62 YO FEMALE TO TRIAGE FOR EVAL OF R WRIST/HAND PAIN S/P FALL LAST PM. STATES SHE LANDED ON THE PALM OF HER HAND. +BRUSING NOTED TO R WRIST. Triage Nurses Notes Reviewed? yes Occurred: yesterday Duration: day(s): Timing: recent history Injury Environment: home Pain/Injury Location: Right: Wrist. Context: fall HPI: 62-year-old female presents to emergency department complaining of fall last night. Patient is reporting right wrist pain after her fall, she states her wrist took the brunt of the fall. Patient states that she was drinking last night and she slipped and fell on right wrist. She did not hit her head or black out. Patient states pain is worse with movement or pressure. SHe notes bruising to anterior wrist. Patient reports associated numbness/tingling to fingers. (Shona VITAL,Dannielle Lucio) Past History Travel History Traveled to [place] past 21 day No Medical History Any Pertinent Medical History? see below for history Neurological: NONE EENT: NONE Cardiovascular: NONE Respiratory: NONE Gastrointestinal: NONE Hepatic: hepatitis C Renal: NONE Musculoskeletal: NONE Psychiatric: alcohol dependence, anxiety, bipolar disease, depression Endocrine: NONE Blood Disorders: NONE Cancer(s): NONE DIRECTOR OF REHABILITATION AND WELLNESS/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: NONE History of MRSA: No History of VRE: No History of CDIFF: No Surgical History Surgical History: hysterectomy Psychosocial History Who do you live with Friend Services at Home None What is your primary language Swedish Tobacco Use: Never used Family History Family History, If Any: MOTHER (Lung cancer). Hx Contributory? No (Dannielle Enamorado) Review of Systems Review of Systems Constitutional: Reports: no symptoms. EENTM: Reports: no symptoms. Respiratory: Reports: no symptoms. Cardiovascular: Reports: no symptoms. GI: Reports: no symptoms. Genitourinary: Reports: no symptoms. Musculoskeletal: Reports: see HPI. Skin: Reports: no symptoms. Neurological/Psychological: Reports: no symptoms. Hematologic/Endocrine: Reports: no symptoms. Immunologic/Allergic: Reports: no symptoms. All Other Systems: Reviewed and Negative (Dannielle Enamorado) Physical Exam Physical Exam General Appearance: well developed/nourished, no apparent distress, alert, awake Head: atraumatic, normal appearance Eyes: Bilateral: normal appearance. Ears, Nose, Throat: hearing grossly normal Neck: normal inspection, supple, full range of motion Cardiovascular/Respiratory: normal peripheral pulses Back: normal inspection, normal range of motion Shoulder Left: normal range of motion, normal inspection Shoulder Right: normal range of motion, normal inspection, nontender Elbow Left: normal range of motion, normal inspection Elbow Right: normal range of motion, normal inspection, nontender Forearm Left: normal range of motion, normal inspection Forearm Right: normal range of motion, ecchymosis to distal anterior forarm/ wrist Wrist Left: normal range of motion, normal inspection Wrist Right: ecchymosis to anterior wrist, tenderness to anteriorlateral wrist, ROM limited d/t pain, mild swelling Hand Left: normal inspection, normal range of motion Hand Right: normal inspection, ROM limited d/t pain, nontender Neurologic/Tendon: normal sensation, radial pulse 2+, capillary refill <2sec Skin: ecchymosis (Dannielle Enamorado) Progress Differential Diagnosis: contusion, dislocation, fracture, sprain Plan of Care: Orders Procedure Date/time Status Durable Medical Equipment 05/04 1312 Active No evidence of acute fracture detected on x-ray images. Based on patient's ecchymosis and significant tenderness there is a possibility of occult fracture, will place in thumb spica splint and follow-up with ortho. I recommended repeat x-ray imaging in 7-10 days to further rule out fracture. Possibility of wrist sprain as well, RICE therapy and ibuprofen for symptoms. Patient is neurovasularly intact. She agrees with the plan of care. Diagnostic Imaging: Viewed by Me: Radiology Read. Discussed w/RAD: Radiology Read. Radiology Impression: PATIENT: HECTOR LUCAS PRESENT AGE: 62 PATIENT ACCOUNT NO: [id number] : 55 LOCATION: [facility] ORDERING PHYSICIAN: Dannielle VITAL SERVICE DATE: 05/04/18-1155 EXAM TYPE: RAD - XRY-HAND, RIGHT; XRY-WRIST COMPLETE-RIGHT EXAMINATION: XR WRIST, RIGHT XR HAND, RIGHT CLINICAL INFORMATION: Status post fall on hand. Evaluate for fracture. COMPARISON: None TECHNIQUE: PA, oblique, lateral, and scaphoid views of the right wrist are obtained. PA, oblique, and lateral views of the right hand are obtained. FINDINGS: Right wrist: There is no fracture or malalignment. There are mild degenerative changes of the triscaphe and first CMC joints. Right hand: There is no fracture or malalignment. There are minor degenerative changes of multiple IP joints. IMPRESSION: Mild degenerative changes. No evidence of acute injury to the right wrist and right hand. DICTATED BY: Jason Park MD DATE/ TIME DICTATED:05/04/181217 BUILDING MAINTENANCE WORKER:[id number] DATE/TIME TRANSCRIBED: 05/04/181217 CONFIDENTIAL, DO NOT COPY WITHOUT APPROPRIATE AUTHORIZATION. < Electronically signed in Other Vendor System> SIGNED BY: Jason Park MD 05/04/181227 (Shona VITAL,Dannielle Lucio) Departure Departure Disposition: HOME OR SELF CARE Condition: Stable Clinical Impression Primary Impression: Fall Qualifiers: Encounter type: initial encounter Qualified Code: W19.XXXA - Unspecified fall, initial encounter Secondary Impressions: Wrist pain Qualifiers: Laterality: right Qualified Code: M25.531 - Pain in right wrist Referrals: Blade Fisher APRN (PCP/Family) Additional Instructions: Take ibuprofen 800 mg twice daily for pain and inflammation. Wear wrist splint until you follow-up with orthopedic doctor for repeat x-rays. Have repeat x- rays in 7-10 days for evaluation of your wrist. Apply ice and rest. Return with worsening symptoms or concerns. Please note that there might be incidental findings in your evaluation that are unrelated to the current emergency department visit. Please notify your primary care doctor about this emergency department visit in order to obtain and review all of the testing performed so that these incidental findings can be monitored as needed. If you had an x-ray performed, please understand that some fractures may not be seen on the initial set of x-rays. If your symptoms persist you might need a repeat set of x-rays to check for such a fracture. If you had a laceration evaluated, please understand that foreign bodies such as glass or wood may not be visible to the naked eye or on plain x-rays. If the wound becomes red, swollen, increasingly more painful or if there is any drainage from the wound, please have it reevaluated by a physician for the possibility of a retained foreign body. If you're unable to follow up as outlined in the discharge instructions please return to the emergency department. Thank you for choosing the [facility] Emergency Department for your care. It was a pleasure to serve you today. Departure Forms: Customer Survey General Discharge Information (Dannielle Enamorado) PA/MECHANICAL ESTIMATOR Co-Sign Statement Statement: ED Attending supervision documentation- [] I saw and evaluated the patient. I have also reviewed all the pertinent lab results and diagnostic results. I agree with the findings and the plan of care as documented in the PA's/MECHANICAL ESTIMATOR's documentation. [x] I have reviewed the ED Record and agree with the PA's/MECHANICAL ESTIMATOR's documentation. [] Additions or exceptions (if any) to the PAs/MECHANICAL ESTIMATOR's note and plan are summarized below: [] (Jeri PATEL, Jacky) Procedures Splinting Location: right wrist Manual Alignment Performed: No Pre-Made Type: thumb spica Splint: thumb spica Splint Applied By: splint applied by other (RN) Pre-Proc Neuro Vasc Exam: normal Post-Proc Neuro Vasc Exam: normal (Dannielle Enamorado)
== END 2018-05-04 13:15 ==
LOC: ERH 11:19
DX: M25.531 Pain in right wrist (principal); W19.XXXA Unspecified fall, initial encounter; Y92.009 Unspecified place in unspecified non-institutional (private) residence as the place of occurrence of the external cause; Y93.9 Activity, unspecified; B19.20 Unspecified viral hepatitis C without hepatic coma; F10.20 Alcohol dependence, uncomplicated; F41.9 Anxiety disorder, unspecified
CPT/HCPCS: 73110-RT; 73130-RT